=== PATIENT | male | born 1965 | race African-American/Black ===

== ENCOUNTER 2019-02-10 06:21 | Inpatient (IN) | payer OTHER ==
[2019-02-10 07:02] VITALS: BMI 33.2
[2019-02-10] MEDS ORDERED: THROMBIN (BOVINE) 5,000 UNIT VIAL TP ONE ×4 (07:15→12:34)
[2019-02-10] MEDS ORDERED: BENZOIN TINCTURE SWABSTICK TP ONE (07:15)
[2019-02-10] MEDS ORDERED: HEPARIN NA (PORCINE) 5,000 UNITS/ML 1ML VIAL ONE ×2 (07:15→09:41)
[2019-02-10] MEDS ORDERED: PROPOFOL 20 ML ONE ×18 (07:56→13:13)
[2019-02-10] MEDS ORDERED: LIDOCAINE HCL/PF 2% SDV 5ML VIAL ONE (07:56)
[2019-02-10] MEDS ORDERED: fentaNYL CITRATE 250 MCG/5 ML VIAL ONE ×2 (07:56→10:05)
[2019-02-10] MEDS ORDERED: MIDAZOLAM HCL 2 MG/2 ML SINGLE DOSE VIAL ONE ×2 (07:57)
[2019-02-10] MEDS ORDERED: LIDOCAINE HCL 2% (20ML MULTI-DOSE VIAL) ONE (08:00)
[2019-02-10] MEDS ORDERED: ROCURONIUM BROMIDE 50 MG/5 ML SYRINGE ONE (08:26)
[2019-02-10] MEDS ORDERED: SUCCINYLCHOLINE CHLORIDE 200 MG/10 ML SYRINGE ONE (08:26)
[2019-02-10] MEDS ORDERED: BUPIVACAINE LIPOSOME/PF (EXPAREL) 266 MG/20 ML VIAL ONE (08:46)
[2019-02-10] MEDS ORDERED: BUPIVACAINE HCL/PF 0.5% (5 MG/ML) 30 ML VIAL IJ ONE (08:46)
[2019-02-10] MEDS ORDERED: VANCOMYCIN 1,000 MG VIAL (RESTRICTED TO ID ONLY) ONE (09:03)
[2019-02-10] MEDS ORDERED: ceFAZolin SODIUM 1 GM VIAL ONE (09:03)
[2019-02-10] MEDS ORDERED: ceFAZolin SODIUM 1 GM VIAL IVPB ONE (09:32)
[2019-02-10] MEDS ORDERED: VANCOMYCIN 1,000 MG VIAL (RESTRICTED TO ID ONLY) IVPB ONE (09:50)
[2019-02-10] MEDS ORDERED: ePHEDrine SULFATE 50 MG/1 ML AMPULE ONE (09:56)
[2019-02-10] MEDS ORDERED: TRANEXAMIC ACID 1000 MG/10 ML VIAL ONE (09:56)
[2019-02-10] MEDS ORDERED: EPINEPHrine/PF 1 MG/1 ML (1:1,000) AMPULE ONE (09:56)
--- NOTE | 2019-02-10 10:07 | PN ---
Progress Note (short form) - Note Progress Note: Long conversation held with the patient and OR nursing team in pre-op holding area. We reviewed the patient's history, physical exam findings, and advanced imaging studies. Although the patient was originally booked for a 2 level ACDF, he understands that his clinical picture and neurological decline is due to extensive cervical spinal stenosis from C3-T1. As such, today we will perform a C5, C6 corpectomy with C4-C7 anterior cervical decompression and C4-C7 anterior column reconstruction using strut cage and instrumented fusion. The patient understands that he might ultimately also need decompressive surgery at C3-C4 and C7-T1, and that this can be performed at a later date. The risks, benefits, and alternatives of the above-listed procedure were discussed with and understood by the patient. He wishes to proceed with the above-listed procedure. Nigel Childers MD (Orthopaedic Surgery).
[2019-02-10] MEDS ORDERED: ONDANSETRON 4 MG/2 ML VIAL ONE (10:45)
[2019-02-10] MEDS ORDERED: DEXAMETHASONE SOD PHOSPHATE 4 MG/1 ML VIAL ONE ×2 (10:45→11:33)
[2019-02-10] MEDS ORDERED: GLYCOPYRROLATE 0.2 MG/1 ML VIAL ONE (10:47)
[2019-02-10] MEDS ORDERED: NEOSTIGMINE METHYLSULFATE 0.5 MG/1 ML - 10 ML MDV ONE (10:47)
[2019-02-10] MEDS ORDERED: PHENYLEPHRINE HCL 10 MG/1 ML SINGLE DOSE VIAL ONE (11:20)
[2019-02-10] MEDS ORDERED: NALOXONE HCL 0.4 MG/ML VIAL ONE (13:46)
--- NOTE | 2019-02-10 13:56 | PN ---
Progress Note (short form) - Note Progress Note: 53M s/p C5, C6 corpectomies with C4-C5, C5-C6, C6-C7 discectomies and C3-C7 anterior cervical decompression with anterior column reconstruction and instrumented fusion POD #0. -10cc decadron x 2 administered. -Airway observation: In case of emergency, remove anterior cervical spine dressing and pull out running suture; ok to cut suture if needed to decompress hematoma. -Maintain head of bed 30-45 degrees. -Pain medication: per anaesthesia team; oral meds (oxycodone preferred), no HOME CARE LIAISON ; NO NSAID's. -Hard c-collar. -DVT PPx: -Mechanical only: NAIMA's, SCD's. -Post-op Ancef x 3 doses. -f/u AM labs. -Incentive spirometry. -PT/OT/Rehab, OOB. -PWB B/L UE: 5lbs. -WBAT B/L LE. -d/c Schmidt catheter at midnight tonight; TOV (8 hours max). -Keep dressing clean & dry. -No heavy lifting (>5 lbs), bending or twisting x 6 months post op. -Start with soft diet; advance diet as tolerated. -B/L UE & LE NV checks. -Care per ICU & medical hospitalist teams. -Discharge planning: f/u [facility] [place] office 02/21/2019; call for appointment; . Nigel Childers MD (Orthopaedic Surgery).
--- NOTE | 2019-02-10 14:00 | OP ---
Operative Note - Note: Operative Date: 02/10/19 Pre-Operative Diagnosis: 1. 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 2. C3-T1 spinal stenosis with neurogenic claudication. 3. Evolving neuromotor weakness; increased falls; worsened balance disorder. 4. Multi-level axial instability of cervical spine with associated myofascial pain complex. SEVERITY OF ILLNESS: 4. Operation: 1. C5, C6 corpectomies. 2. C4, C7 partial corpectomies. 3. C4-C5, C5-C6, C6-C7 discectomies. 4. C3-C7 insertion biomechanical device. 5. C3-C7 anterior instrumentation. 6. C4-C7 anterior arthrodesis. 7. Bone autograft. 8. Bone allograft. 9. Microsurgical dissection Findings: During corpectomies, diminished signals to B/L LE and RUE. MAP's maintained above 90. Extra 10mg decadron administered. After release of PLL, signals improved in RLE only to diminish again later. Please refer to IOM log for further details. Implants: Cage: Choice Spine Battiest - 46 x [id number]. Plate: Precision Spine Slimplicity - 52mm. Screws: 4 x 4x12mm Post-Operative Diagnosis: Same as Pre-op Surgeon: Nigel Childers Salesperson Parts: Elias Childers Anesthesiologist/PRIMER INSERTING MACHINE OPERATOR: Nieves Bowden Anesthesia: General Specimens Removed: C4-C5, C5-C6, C6-C7 discs Estimated Blood Loss (mls): 275 Drains & Tubes with Location: 1 x deep HemoVac Blood Volume Replaced (mls): 125 (Cell Saver) Fluid Volume Replaced (mls): 1,800 (Crystalloid) Operative Report Dictated: Yes
[2019-02-10] MEDS ORDERED: FLUMAZENIL 0.5 MG/5 ML VIAL ONE (14:06)
[2019-02-10] MEDS ORDERED: oxyCODONE HCL 5 MG TABLET PO PRN ×2 (14:08)
[2019-02-10] MEDS ORDERED: ONDANSETRON 4 MG/2 ML VIAL IVPUSH PRN (14:08)
[2019-02-10] MEDS ORDERED: ACETAMINOPHEN 1000 MG/100 ML VIAL (NON FORMULARY) IVPB PRN (14:14)
[2019-02-10] MEDS ORDERED: LACTATED RINGERS SOLUTION 1,000 ML IV SCH ×2 (14:15→23:41)
[2019-02-10] MEDS ORDERED: ceFAZolin 2 GRAM PREMIX BAG IVPB SCH (15:00)
[2019-02-10] MEDS ORDERED: ACETAMINOPHEN 1000 MG/100 ML VIAL (NON FORMULARY) IVPB ONE (15:30)
[2019-02-10] MEDS ORDERED: ACETAMINOPHEN INJECTION 100 ML IVPB ONE (15:32)
--- NOTE | 2019-02-10 15:35 | OP ---
DATE OF OPERATION: 02/10/2019 PRE-OPERATIVE DIAGNOSIS: 1. C4-C5, C5-C6, C6-C7 intervertebral disk disorder with associated spondylotic: A. Myelopathy. B. Radiculopathy. 2. Cervical spinal stenosis with neurogenic claudication. 3. Cervical kyphosis/deformity. 4. Axial segmental instability cervical spine. 5. Progressive neurological decline with gait imbalance/disorder, weakness, and fall risk. POST-OPERATIVE DIAGNOSIS: 1. C4-C5, C5-C6, C6-C7 intervertebral disk disorder with associated spondylotic: A. Myelopathy. B. Radiculopathy. 2. Cervical spinal stenosis with neurogenic claudication. 3. Cervical kyphosis/deformity. 4. Axial segmental instability cervical spine. 5. Progressive neurological decline with gait imbalance/disorder, weakness, and fall risk. SURGICAL PROCEDURE: 1. C4-C5, C5-C6, C6-C7 discectomies and arthrodesis (37780, 41115 x 2). 2. C5, C6 corpectomies. (74046, 55155). 3. C4, C7 partial corpectomies (24175 x 2). 3. Insertion of biomechanical device C4-C7 (19653). 4. C4-C7 anterior instrumentation (93498). 5. Bone autograft (44349). 6. Bone allograft (87120). 7. Microsurgical dissection (69892). FINDINGS: Significant expansion of theca observed after C4-C7 decompression. IMPLANTS: 1. Cage: Choice Spine [place] [id number]. 2. Plate: Precision Spine Simplicity 52mm. 3. Screws: 4 x 12x4mm. SURGEON: Nigel Childers MD DOMESTIC CLEANER: Elias Childers MD ANESTHESIOLOGT: Nieves Bowden MD ANESTHESIA: General endotracheal tube anesthesia. POSITION: Supine. INCISION: Right oblique anterior. ESTIMATED BLOOD LOSS: 275cc. TRANSFUSIONS: 125cc Cell Saver. INTRAVENOUS FLUID: 1.8L crystalloid. SPECIMENS: C4-5, C5-C6, C6-C7 disc. DRAINS: 1 x deep HemoVac. COMPLICATIONS: None. URINE OUTPUT: See anesthesia record. BACTERIOLOGY: None. CLOSURE: 2-0 Vicryl and 3-0 Biosyn absorbable suture. INDICATIONS: The patient was indicated for an anterior cervical decompression and instrumented fusion to prevent the progression of already worsening neurological decline. The patient was identified in the holding area by his armband. A long discussion was held with the patient regarding the risks, benefits and alternatives of the above-named procedure. The risks include, but are not limited to: pain, bleeding, infection, damage to surrounding structures (including nerves, blood vessels, skin, ligaments, tendons, and bone), dysphagia, dysphonia, nerve palsy, weakness, limp, wound complications, pseudarthrosis, failure of fusion, failure of hardware/implants/ reduction, need for further surgery, blood clots, myocardial infarction, pulmonary embolism, cerebrovascular event, anesthesia complications, neurological injury, loss of function, and . Benefits as mentioned above. Alternatives include no surgery. All questions were answered. The patient understood and agreed to the procedure. Informed consent was obtained, witnessed and verified by hospital nursing staff. The patients anterior neck was marked. The patient was then seen by the anesthesia and nursing staff. A posterior cervical spine block was then performed and then taken to the operating room. PROCEDURE: The patient was brought into the operating room and transferred to the OR table , and secured with a safety strap. Consent and the operative site were again verified with the patient, the nursing team, the surgical team, and the anesthesiology team. Anesthesia, IV antibiotics, 10mg IV decadron and 1g IV TXA were then administered without complication. A time out was done, led by me the attending surgeon. An indwelling Schmidt catheter was successfully inserted by the nursing team. The intra-operative neural monitoring team then set up for the case. Pre-positional baseline SSEP, MEP, & EEG readings were recorded. The patient was positioned in the supine position with arms tucked. All bony prominences were very well padded. A bump was placed beneath the scapulae to facilitate extension of the patients neck. A C-arm fluoroscopy unit was positioned perpendicularly to the table and maintained at the level of the head, except when needed. The intended surgical level was confirmed using fluoroscopy, and a deep neck crease in the lines of Surendra at this level was targeted for incision. Intra-operative neural monitoring revealed no change between pre-positional and post-positional readings. The operative site was then prepped and in the standard sterile fashion using betadine prep and scrub, wiped off with alcohol, Duraprep applied, and then free draped. Pre-operative imaging was available for intra-operative evaluation. Time-out was again done, and the case began. A standard Alonso-Whitney approach to the cervical spine was utilized. An oblique anterior incision was made on the right side of the patients neck in the lines of Surendra in standard fashion. Large anterior jugular veins were seen and protected. The platysma was split longitudinally, Dissection was carried through the investing layer of fascia and finger palpation was used to create a plane lateral to the strap muscles between the carotid sheath and the viscera. Next, the esophagus, trachea, and the carotid sheath were visualized. Hand-held retractors were used to retract these structures safely out of the way , allowing direct access to the anterior cervical spine. The prevertebral fascia overlying the anterior cervical spine was then split using peanut swabs. An 18-gauge spinal needle was bent and used to localize the indicated surgical level under fluoroscopy. This needle had been placed anteriorly into the C4-C5 intervertebral disc. Next, the medial borders of the Longus Coli musculature were gently released over the anterolateral borders of the vertebral bodies and disc spaces using monopolar electrocautery. A self-retaining retractor system was used with the teeth of the blades retracting the belly of the longus coli muscles, and with the retractors themselves safely retracting the carotid sheath laterally and viscera medially. At that point, the IOM team noted that although SSEP's were stable and unchanged from baseline, there was diminished MEP signalling to the patient's bilateral upper and lower extremities. We checked the patient's blood pressure, which was confirmed to be stable. At this point, the anesthesia team, the IOM team, and I agreed to keep the MAP ( mean arterial pressure) above 90mmHg throughout the case to ensure good spinal cord perfusion. I also then elected for the patient to receive another 10mg IV Decadron and we the went ahead with the planned operation. One 12mm Bowman pin was then placed into the center of the vertebral bodies of C4 and C7. The Bowman pin placement was confirmed via fluorscopy. A Bowman pin distractor system was applied with no distraction at this stage. Additionally, the distractor barrels served as superior and inferior soft tissue retractors. The microscope was then introduced. Using monopolar electrocautery, the annuli of the C4-C5, C5-C6, and C6-C7 discs were incised. Each disc was morselized using a curette and excised using a pituitary rongeur. A Matchstick mele-tipped sean was then used to cut a trough into the left and right-hand side of the C5 and C6 vertebral bodies just medial to the waist of each vertebral body, and thus medial to the plane of the vertebral arteries. The C4-C5, C5-C6, and C6-C7 disc spaces were then also burred out. The remaining bone was delivered with a Leksell rongeur. All of this bone was saved for grafting purposes as an autologous graft. A 4mm ball-shaped, mele-tipped sean was utilized to complete the debulking of the residual bone. The mele coating on both sean tips helped minimize blood loss. An undercutting partial corpectomy was performed at C4 and C7 using a sean and Kerrison rongeurs. This was to ensure complete decompression proximally and distally. The PLL was thickened and adhered to the anterior dura. A small Reubens type elevator was utilized to ensure that all PLL complex was free from adhesion to the theca from C4-C7. There was no evidence of OPLL. The visible posterior longitudinal ligament was released and excised utilizing Kerrison rongeur upcuts. This ensured complete decompression proximally and distally from C4-C7. Immediately, the theca expanded anteriorly into the decompressed space. MEP signals in the LE improved momentarily, but then diminished again. Our decompression of the cervical spine was successfully achieved. The anesthesiologist then performed a Valsalva maneuver up to 40mmHg. There was no evidence of dural defect, cerebrospinal fluid leak, or uncontrollable bleeding. Next, a Choice Spine [place] cage measure to fit the space created. The cage was filled with autologous bone derived from the corpectomies, along with demineralized bone matrix putty allograft. The cage was then gently tapped into position. This completing the anterior arthrodesis. The patients head was gently flexed under live fluoroscopy to allow the teeth of the cage to engage the adjacent bone and ensure compression fixation of the cage itself. The was no evidence of mal-position or instability of the cage with flexion and extension of the cervical spine during live fluoroscopy. The C4 and C7 Bowman pins were removed. The holes from the Bowman pins at C4 and C7 were plugged with demineralized bone matrix putty. A 52mm Precision Spine Slimplicity plate was sized and 12mm screws were used to provide solid fixation of the plate to the anterior C4 and C7 vertebral bodies. The screws were then locked using the plate-screw locking mechanism. Fluoroscopic images in the AP and lateral plane showed implants to be in good position and with good overall alignment of the cervical spine. Throughout the case, copious irrigation was performed to clear debris, and to moisturize the dura and all exposed soft tissue. Hemostasis was assured. A deep 1/8 HemoVac drain was placed and brought out to the right. The wound was closed primarily using 2-0 Vicryl and 3-0 Biosyn sutures. A sterile compressive dressing and a [place]ingle[place]-J cervical collar were applied. Sponge and needle counts were correct at the end of the case, and I, the attending surgeon, was present and scrubbed throughout the case. The patient was then extubated by the anesthesia staff without incident or complications and was then transferred to the recovery room in stable condition having tolerated the procedure well. OVERALL COMMENTS: No complications. The operation went extremely well. Patient's blood pressures remained stable throughout the case. No damage to the cord mechanically or in any other way. SSEP's remained stable throughout the case. We remain concerned about the drop in MEP signals to the hands and feet, which manifest right after exposure of the anterior cervical spine. The drop occurred when we started burring the bone anteriorly, and this remained down throughout. Otherwise, all operative goals met: Complete decompression of the spinal cord from C4-C7 as described. Solid fixation of all implants. MD MICHEL Martin/[id number] MTDD
[2019-02-10] MEDS: CEFAZOLIN 2 GM/D5W 2 GM/50 ML ML IVPB SCH ×2 (17:15→21:45)
--- NOTE | 2019-02-10 17:37 | CONSULT ---
Consultation: REQUESTING PROVIDER: CONSULT REQUEST: We have been asked to medically evaluate this patient for ( post op monitoring ). HISTORY OF PRESENT ILLNESS: 53 year old male with pomhx of HTN not on meds , and ckd base line Cr 1.5 presented to [facility] for elective cervical spine surgery after one year hisotry of spinal steosis with numbness , tingling and right side weakness , imbalance gait , symptoms started one year ago while was doing cardiovascular exercise per pt , denies nay fever , chills, N/V/D/C denies any headache , blurry vision , chest pain , sob . 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 , denies smoking or drugs , drinking alcohol socially , wine REVIEW OF SYSTEMS: CONSTITUTIONAL: Absent: fever, chills, diaphoresis, generalized weakness, malaise, loss of appetite, weight change HEENT: Absent: rhinorrhea, nasal congestion, throat pain, throat swelling, difficulty swallowing, mouth swelling, ear pain, eye pain, visual changes CARDIOVASCULAR: Absent: chest pain, syncope, palpitations, irregular heart rate, lightheadedness , peripheral edema RESPIRATORY: Absent: cough, shortness of breath, dyspnea with exertion, orthopnea, wheezing, stridor, hemoptysis GASTROINTESTINAL: Absent: abdominal pain, abdominal distension, nausea, vomiting, diarrhea, constipation, melena, hematochezia GENITOURINARY: Absent: dysuria, frequency, urgency, hesitancy, hematuria, flank pain, genital pain MUSCULOSKELETAL: Absent: myalgia, arthralgia, joint swelling, back pain, neck pain SKIN: Absent: rash, itching, pallor HEMATOLOGIC/IMMUNOLOGIC: Absent: easy bleeding, easy bruising, lymphadenopathy, frequent infections ENDOCRINE: Absent: unexplained weight gain, unexplained weight loss, heat intolerance, cold intolerance NEUROLOGIC: Absent: headache, focal weakness right side or paresthesias LE , dizziness, unsteady gait imbalance , seizure, mental status changes, bladder or bowel incontinence PSYCHIATRIC: Absent: anxiety, depression, suicidal or homicidal ideation, hallucinations. PHYSICAL EXAMINATION Vital Signs - 24 hr 02/10/19 02/10/19 02/10/19 06:52 07:01 07:02 Temperature 98.3 F 98.3 F Pulse Rate 74 74 Respiratory 20 20 Rate Blood Pressure 135/78 135/78 O2 Sat by Pulse 100 Oximetry (%) 02/10/19 02/10/19 02/10/19 14:00 14:15 14:30 Temperature 98.0 F Pulse Rate 93 H 92 H 110 H Respiratory 30 H 34 H 36 H Rate Blood Pressure 150/89 152/92 150/90 O2 Sat by Pulse 100 100 100 Oximetry (%) 02/10/19 02/10/19 02/10/19 14:45 15:00 15:15 Temperature Pulse Rate 90 83 88 Respiratory 28 H 25 H 25 H Rate Blood Pressure 155/88 160/90 165/45 L O2 Sat by Pulse 100 100 100 Oximetry (%) 02/10/19 02/10/19 02/10/19 15:30 15:45 16:00 Temperature Pulse Rate 83 80 83 Respiratory 25 H 25 H 26 H Rate Blood Pressure 155/80 140/90 148/90 O2 Sat by Pulse 100 100 100 Oximetry (%) 02/10/19 02/10/19 16:15 16:30 Temperature 97.9 F Pulse Rate 80 85 Respiratory 25 H 18 Rate Blood Pressure 159/90 158/88 O2 Sat by Pulse 100 9 L Oximetry (%) GENERAL: Awake, alert, and fully oriented, in mild distress due to pain . HEAD: Normal with no signs of trauma. EYES: Pupils equal, round and reactive to light, extraocular movements intact, sclera anicteric, conjunctiva clear. EARS, NOSE, THROAT: Ears normal, nares patent, oropharynx clear without exudates. Moist mucous membranes. NECK: supple , collar in place , anterior surgical scar , and Alonso drainage LUNGS: Breath sounds equal, clear to auscultation bilaterally. No wheezes, and no crackles. No accessory muscle use. HEART: Regular rate and rhythm, normal S1 and S2 without murmur, rub or gallop. ABDOMEN: Soft, nontender, not distended, normoactive bowel sounds, no guarding, MUSCULOSKELETAL: move all ext , right hand digital strategist is weak 2/5 , right hand digital strategist 4/ 5 . lower ext right weaker than left , able to move toes but difficult to raise legs due to pain ,no edema , +2 DP. NEUROLOGICAL: Cranial nerves II-XII intact. low pitched tone S/P extubation , gait not observed , PSYCHIATRIC: Cooperative. SKIN: Warm, dry, normal turgor, Laboratory Results - last 24 hr 02/10/19 02/10/19 06:35 08:20 Blood Type O POSITIVE O POSITIVE Antibody Screen Negative Active Medications Generic Name Dose Route Start Last Admin Trade Name Freq PRN Reason Stop Dose Admin Acetaminophen 1,000 mg 02/10/19 14:14 Ofirmev Injection - IVPB Q6H PRN FEVER Fentanyl 50 mcg 02/10/19 14:14 Sublimaze Injection - IVPUSH [id number] PRN PAIN-PACU ORDER X 4 DOSES ONLY Lactated Ringer's 1,000 mls @ 125 mls/hr 02/10/19 14:15 02/10/19 17:33 Lactated Ringers Solution IV Not Given ASDIR MICHELLE Cefazolin Sodium/Dextrose 2 gm in 50 mls @ 100 mls/hr 02/10/19 15:30 17:15 Ancef 2 Gm Premixed Ivpb - IVPB 02/11/19 03:29 100 mls/hr Q6H-IV MICHELLE Administration Ondansetron HCl 4 mg 02/10/19 14:08 Zofran Injection IVPUSH Q6H PRN NAUSEA AND/OR VOMITING Oxycodone HCl 5 mg 02/10/19 14:08 Roxicodone - PO Q4H PRN PAIN LEVEL 1-5 Oxycodone HCl 10 mg 02/10/19 14:08 Roxicodone - PO Q4H PRN PAIN LEVEL 6-10 ASSESSMENT/PLAN: 53 year old male with no pmhx presented to [facility] for elective cervical surgery due to one year history of spinal stenosis , numbness and tingling in LE and imbalance gait . #POD# [address] richard 1. 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 2. C3-T1 spinal stenosis with neurogenic claudication. 3. Evolving neuromotor weakness; increased falls; worsened balance disorder. 4. Multi-level axial instability of cervical spine with associated myofascial pain complex. SEVERITY OF ILLNESS: 4. Operation: 1. C5, C6 corpectomies. 2. C4, C7 partial corpectomies. 3. C4-C5, C5-C6, C6-C7 discectomies. 4. C3-C7 insertion biomechanical device. 5. C3-C7 anterior instrumentation. 6. C4-C7 anterior arthrodesis. 7. Bone autograft. 8. Bone allograft. 9. Microsurgical dissection * pain control per surgery team , oxycodone 10 and 5 , Tylenol IV , Fentanyl injection PRN 4 doses max * IV fluids RL @ 125 CC/hr * Cefazolin Prophylaxis x2 * Schmidt in place could be remove at med night * soft diet per surgery * PT, OT , OOB , avoid heavy lifting , head of bed elevation , * no bending or twisting x 6 months post op. * maintain airways ,monitor for any surgical hematoma or any signs of bleeding , NO NSAIDS * monitor in ICU , pulse oxy, BP monitor , surveillance system monitor * monitor urine out put * zofran for nausea * cbc , cmp, mg , phosphorus * monitor lytes * no chemical prophylaxis , apply SCDS , TEDS * incentive spirometry * blood loss estimated 275 cc * crystaloid replinished 1800 cc * S.P decardan IV x2 # HTN * not on any meds at home , * monitor closely * can start Norvasc 5 mg daily ic cont to be elevated in AM * Labetolol IVPRN over night if above 170 systolic * # CKD base line Cr 1.5 , monitor labs , Dispo: We will continue to follow the patient. Thank you for this consultative opportunity. Visit type - Emergency Visit Emergency Visit: No - New Patient This patient is new to me today: Yes Date on this admission: 02/10/19 - Critical Care Critical Care patient: Yes Total Critical Care Time (in minutes): 45 Critical Care Statement: The care of this patient involved high complexity decision making to prevent further life threatening deterioration of the patient 's condition and/or to evaluate & treat vital organ system(s) failure or risk of failure. ATTENDING PHYSICIAN STATEMENT I saw and evaluated the patient. I reviewed the resident's note and discussed the case with the resident. I agree with the resident's findings and plan as documented. SUBJECTIVE: OBJECTIVE: ASSESSMENT AND PLAN:
--- NOTE | 2019-02-10 17:59 | CONSULT ---
Consultation: REQUESTING PROVIDER: Dr. Childers CONSULT REQUEST: We have been asked to medically evaluate this patient for postoperative management HISTORY OF PRESENT ILLNESS: Patient is a 53 year old male with history of hypertension (not on antihypertensives), CKD (baseline Cr 1.5 secondary to muscle mass) presetns POD #0 s/p C5, C6 corpectomies, C4-C7 discectomies and C3-C7 anterior cervical decompression with anterior column reconstruction and instrumented fusion. Patient has been complaining of weakness worst at the right lower extremity ( hip flexors), and right upper extremity leading to diminished exercise capacity. Intraoperatively patient had estimated blood loss of 275mL, with 125cc cell- saver, and 1800cc crystalloid fluid replacement. Patient also received Decadron 10mg X2. Currently patient endorses chills, weakness (bilateral upper and lower extremities) and numbness of his lower extremities (right > left). Past medical history: hypertension, CKD Past surgical history: left leg cyst drainage (25 years ago) Family history: Mother with history of hypertension, diabetes mellitus Medications: Multivitamins (A, B, C, D, E) Allergies: NKDA Social history: Lives with his son. 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 Denies smoking cigarettes, alcohol consumption, illicit drug use. Patient is independent is his activities of daily living. REVIEW OF SYSTEMS: CONSTITUTIONAL: Admits: chills, generalized weakness. Absent: fever, diaphoresis, malaise, loss of appetite, weight change HEENT: Absent: rhinorrhea, nasal congestion, throat pain, throat swelling, difficulty swallowing, mouth swelling, ear pain, eye pain, visual changes CARDIOVASCULAR: Absent: chest pain, syncope, palpitations, irregular heart rate, lightheadedness , peripheral edema RESPIRATORY: Absent: cough, shortness of breath, dyspnea with exertion, orthopnea, wheezing, stridor, hemoptysis GASTROINTESTINAL: Absent: abdominal pain, abdominal distension, nausea, vomiting, diarrhea, constipation, melena, hematochezia GENITOURINARY: Absent: dysuria, frequency, urgency, hesitancy, hematuria, flank pain, genital pain MUSCULOSKELETAL: Absent: myalgia, arthralgia, joint swelling, back pain, neck pain SKIN: Absent: rash, itching, pallor HEMATOLOGIC/IMMUNOLOGIC: Absent: easy bleeding, easy bruising, lymphadenopathy, frequent infections ENDOCRINE: Absent: unexplained weight gain, unexplained weight loss, heat intolerance, cold intolerance NEUROLOGIC: Absent: headache, focal weakness or paresthesias, dizziness, unsteady gait, seizure, mental status changes, bladder or bowel incontinence PSYCHIATRIC: Absent: anxiety, depression, suicidal or homicidal ideation, hallucinations. PHYSICAL EXAMINATION Vital Signs - 24 hr 02/10/19 02/10/19 02/10/19 06:52 07:01 07:02 Temperature 98.3 F 98.3 F Pulse Rate 74 74 Respiratory 20 20 Rate Blood Pressure 135/78 135/78 O2 Sat by Pulse 100 Oximetry (%) 02/10/19 02/10/19 02/10/19 14:00 14:15 14:30 Temperature 98.0 F Pulse Rate 93 H 92 H 110 H Respiratory 30 H 34 H 36 H Rate Blood Pressure 150/89 152/92 150/90 O2 Sat by Pulse 100 100 100 Oximetry (%) 02/10/19 02/10/19 02/10/19 14:45 15:00 15:15 Temperature Pulse Rate 90 83 88 Respiratory 28 H 25 H 25 H Rate Blood Pressure 155/88 160/90 165/45 L O2 Sat by Pulse 100 100 100 Oximetry (%) 02/10/19 02/10/19 02/10/19 15:30 15:45 16:00 Temperature Pulse Rate 83 80 83 Respiratory 25 H 25 H 26 H Rate Blood Pressure 155/80 140/90 148/90 O2 Sat by Pulse 100 100 100 Oximetry (%) 02/10/19 02/10/19 16:15 16:30 Temperature 97.9 F Pulse Rate 80 85 Respiratory 25 H 18 Rate Blood Pressure 159/90 158/88 O2 Sat by Pulse 100 9 L Oximetry (%) GENERAL: The patient is awake, alert, and fully oriented, in no acute distress. HEAD: Normocephalic, atraumatic. EYES: PERRL, extraocular movements intact, sclera anicteric, conjunctiva clear. ENT: Oropharynx clear, without erythema or exudates. Moist mucous membranes. NECK: Cervical collar in place. Right sided VALENTÍN drain with sanguinous drainage. Negative stridor auscultated. LUNGS: Breath sounds equal, clear to auscultation bilaterally, no wheezes, no crackles. No accessory muscle use. HEART: Regular rate and rhythm, S1, S2 without murmur, rub or gallop. ABDOMEN: Soft, nondistended, nontender to light and deep palpation x4 quadrants , no rebound tenderness, no guarding. Normoactive bowel sounds x4 quadrants. EXTREMITIES: 2+ radial, dorsalis pedis pulses bilaterally. No lower extremity edema bilaterally. NEUROLOGICAL: Cranial nerves II through XII grossly intact. Strength testing: LUE 3/5, RUE 2-3/5, LLE 3/5, RLE 2/5. Sensation diminished right lower extremity > left lower extremity. Biceps, and Patellar reflexes 1+ bilaterally. PSYCH: Normal mood, normal affect upon my encounter. SKIN: Warm, dry. Right sided cervical surgical site bandaged clean, dry, intact. Laboratory Results - last 24 hr 02/10/19 02/10/19 06:35 08:20 Blood Type O POSITIVE O POSITIVE Antibody Screen Negative Active Medications Generic Name Dose Route Start Last Admin Trade Name Freq PRN Reason Stop Dose Admin Acetaminophen 1,000 mg 02/10/19 14:14 Ofirmev Injection - IVPB Q6H PRN FEVER Fentanyl 50 mcg 02/10/19 14:14 Sublimaze Injection - IVPUSH [id number] PRN PAIN-PACU ORDER X 4 DOSES ONLY Lactated Ringer's 1,000 mls @ 125 mls/hr 02/10/19 14:15 02/10/19 17:33 Lactated Ringers Solution IV Not Given ASDIR MICHELLE Cefazolin Sodium/Dextrose 2 gm in 50 mls @ 100 mls/hr 02/10/19 15:30 17:15 Ancef 2 Gm Premixed Ivpb - IVPB 02/11/19 03:29 100 mls/hr Q6H-IV MICHELLE Administration Ondansetron HCl 4 mg 02/10/19 14:08 Zofran Injection IVPUSH Q6H PRN NAUSEA AND/OR VOMITING Oxycodone HCl 5 mg 02/10/19 14:08 Roxicodone - PO Q4H PRN PAIN LEVEL 1-5 Oxycodone HCl 10 mg 02/10/19 14:08 Roxicodone - PO Q4H PRN PAIN LEVEL 6-10 ASSESSMENT/PLAN: Patient is a 53 year old male with history of hypertension (not on antihypertensives), CKD (baseline Cr 1.5 secondary to muscle mass) presetns POD #0 s/p C5, C6 corpectomies, C4-C7 discectomies and C3-C7 anterior cervical decompression with anterior column reconstruction and instrumented fusion. Cervical corpectomies, discectomies, and cervical decompression/ reconstruction -Follow cervical spine Xray -Ancef 2grams Q6 hours x3 doses postoperatively -Ofirmev 1000mg IV Q6 hours. Caution with opiates; patient reported to be very sensitive -Elevate head of bed 30 degrees -Maintain oxygen saturation greater than 90%. -Incentive spirometer -Physical therapy evaluation Hypertension -Elevated BP may be secondary to pain. Monitor vitals closely -Consider initiating Beta Eliana low dose to control blood pressure. FEN -IV LR at 125mL/ hour. Discontinue once patient tolerating oral intake -Follow BMP -Soft diet, pending speech/ swallow evaluation Prophylaxis -SCDs bilateral lower extremities- per Dr. Childers. Disposition: We will continue to follow the patient. Thank you for this consultative opportunity. Visit type - Emergency Visit Emergency Visit: Yes ED Registration Date: 02/10/19 Care time: The patient presented to the Emergency Department on the above date and was hospitalized for further evaluation of their emergent condition. - New Patient This patient is new to me today: Yes Date on this admission: 02/10/19 - Critical Care Critical Care patient: Yes Total Critical Care Time (in minutes): 35 Critical Care Statement: The care of this patient involved high complexity decision making to prevent further life threatening deterioration of the patient 's condition and/or to evaluate & treat vital organ system(s) failure or risk of failure. ATTENDING PHYSICIAN STATEMENT I saw and evaluated the patient. I reviewed the resident's note and discussed the case with the resident. I agree with the resident's findings and plan as documented. SUBJECTIVE: OBJECTIVE: ASSESSMENT AND PLAN:
--- NOTE | 2019-02-10 20:04 | PN ---
Teaching Attending Note Name of Resident: Rod Delgado ATTENDING PHYSICIAN STATEMENT I saw and evaluated the patient. I reviewed the resident's note and discussed the case with the resident. I agree with the resident's findings and plan as documented. SUBJECTIVE: consult for dr. Childers CC: s/p cervical spine sx HPI : 53 y/o man with h/o ceervical disc disease , and untreated HTN. who presented for his sx . medicine service was consulted for medical management patient is seen in ICU post his procedure. he has numbness in his hands and weakness in his legs. sore throat. no SOB , no HUTSON or dizziness OBJECTIVE: NAD , awake, alet, collar on . neck with anterior dressing. no stridor . VALENTÍN with bloody drainage . MMM, oropharynx with erythema and bruising . no edema Lungs : CTAB CV: RRR, n oMRG Abd: soft, NT, ND , NL BS Ext : No edema No erythema NEuro : EOMI, round equal pupils, no facial droop. tongue and uvula at mid line strength : RUE: 5/5 shoulder shrug, 5/5 biceps and triceps . 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 4/5 knee extension . 4/5 ankle dorsiflexion, and 5/5 ankle plantar flexion LLE: 5/5 hip flexion . 5/5 knee extension . 5/5 ankle dorsiflexion, and 5/5 ankle plantar flexion . 5/5 knee flexion sensation : decreased to light touch on thighs and legs. nl on feet and on upper extremities and trunk reflexes : 2+ knee jerk b/l. 1+ biceps b/l ASSESSMENT AND PLAN: 3 y/o man with h/o ceervical disc disease , and untreated HTN. who presented for his sx . medicine service was consulted for medical management 1- Cervical disc disease with meylopathy and radiculopathy. s/p cervical spine sx 2- H/o Untreated hypertension . 3- elevated BP plan ; - painmanagement - monitopr BP , likely elevated not due to pain - SCds no heparin - food as tolerated. - baker - PT -add bowel regimen
[2019-02-10] MEDS ORDERED: DOCUSATE NA 100 MG/10 ML UNIT-DOSE CUPS PO PRN (20:05)
[2019-02-10 21:43] LABS: BASO % 0.1 % (0-2.0); HEMOGLOBIN 13.6 GM/dL (11.7-16.9); MCH 26.6 pg (25.7-33.7); MCHC 32.5 g/dl (32.0-35.9); MEAN CELL VOLUME 81.8 fl (80-96); MEAN PLT VOLUME 8.7 fl (7.5-11.1); MONO % 0.7 % (3.8-10.2); NEUT % 94.2 % (42.8-82.8); PLATELET COUNT 175 K/MM3 (134-434); RBC 5.13 M/mm3 (4.00-5.60); RDW 13.7 % (11.9-15.9); WHITE BLOOD COUNT 9.3 K/mm3 (4.0-10.0)
[2019-02-10 22:19] LABS: ALBUMIN 3.5 g/dl (3.4-5.0); BILIRUBIN,TOTAL 0.4 mg/dL (0.2-1); BLOOD UREA NITROGEN 12.1 mg/dL (7-18); CREATININE 1.8 mg/dL (0.55-1.3); MAGNESIUM 1.7 mg/dL (1.8-2.4); PHOSPHOROUS 2.2 mg/dL (2.5-4.9); POTASSIUM 4.5 mmol/L (3.5-5.1); TOT PROT 6.7 g/dl (6.4-8.2)
[2019-02-10 22:49] LABS: PLATELET ESTIMATE ADEQUATE
[2019-02-11] MEDS: CEFAZOLIN 2 GM/D5W 2 GM/50 ML ML IVPB SCH (03:30)
[2019-02-11 07:28] LABS: BASO % 0.2 % (0-2.0); HEMATOCRIT 40.3 % (35.4-49); HEMOGLOBIN 13.1 GM/dL (11.7-16.9); MCH 26.5 pg (25.7-33.7); MCHC 32.4 g/dl (32.0-35.9); MEAN CELL VOLUME 81.6 fl (80-96); NEUT % 84.8 % (42.8-82.8); PLATELET COUNT 169 K/MM3 (134-434); RBC 4.94 M/mm3 (4.00-5.60); RDW 13.4 % (11.9-15.9); WHITE BLOOD COUNT 11.5 K/mm3 (4.0-10.0)
[2019-02-11 08:09] LABS: ALBUMIN 3.3 g/dl (3.4-5.0); CALCIUM 9.1 mg/dL (8.5-10.1); CREATININE 1.6 mg/dL (0.55-1.3); PHOSPHOROUS 4.3 mg/dL (2.5-4.9); POTASSIUM 4.4 mmol/L (3.5-5.1); TOT PROT 6.4 g/dl (6.4-8.2)
--- NOTE | 2019-02-11 11:12 | PN ---
Teaching Attending Note Name of Resident: Vy Celis ATTENDING PHYSICIAN STATEMENT I saw and evaluated the patient. I reviewed the resident's note and discussed the case with the resident. I agree with the resident's findings and plan as documented. SUBJECTIVE: Patient seen and examined in the ICU. Awake and alert. No CP or SOB. Neuro exam apparently improved post-op. No acute events overnight. GENERAL: Awake, alert, and fully oriented HEAD: Normal with no signs of trauma. EYES: Pupils equal, round and reactive to light, extraocular movements intact, sclera anicteric, conjunctiva clear. EARS, NOSE, THROAT: Ears normal, nares patent, oropharynx clear without exudates. Moist mucous membranes. NECK: supple , collar in place , anterior surgical scar , and Alonso drainage LUNGS: Breath sounds equal, clear to auscultation bilaterally. No wheezes, and no crackles. No accessory muscle use. HEART: Regular rate and rhythm, normal S1 and S2 without murmur, rub or gallop. ABDOMEN: Soft, nontender, not distended, normoactive bowel sounds, no guarding, MUSCULOSKELETAL: move all ext, slight sensory decrease BL upper thighs, motor intact NEUROLOGICAL: Non-focal PSYCHIATRIC: Cooperative. SKIN: Warm, dry, normal turgor, ASSESSMENT/PLAN: POD# 1 1. C5, C6 corpectomies. 2. C4, C7 partial corpectomies. 3. C4-C5, C5-C6, C6-C7 discectomies. 4. C3-C7 insertion biomechanical device. 5. C3-C7 anterior instrumentation. 6. C4-C7 anterior arthrodesis. 7. Bone autograft. 8. Bone allograft. 9. Microsurgical dissection Pain control Monitor Neuro exam PO as tolerated VTE prophylaxis Activity per Ortho Home meds Floor when OK with surgery Dr Perdomo
--- NOTE | 2019-02-11 11:21 | CONSULT ---
Admitting History and Physical - Primary Care Physician PCP: Nigel Childers - Admission History of Present Illness: 53 y/o man with h/o ceervical disc disease in ICU post his procedure with numbness in his hands and weakness in his legs. sore throat s/p C5, C6 corpectomies, C4-C7 discectomies and C3-C7 anterior cervical decompression with anterior column reconstruction and instrumented fusion. Selected Entries 02/10/19 02/10/19 02/10/19 06:52 07:01 14:00 Temperature 98.3 F 98.3 F 98.0 F Blood Pressure 135/78 135/78 150/89 02/10/19 02/10/19 02/10/19 14:15 14:30 14:45 Temperature Blood Pressure 152/92 150/90 155/88 02/10/19 02/10/19 02/10/19 15:00 15:15 15:30 Temperature Blood Pressure 160/90 165/45 L 155/80 02/10/19 02/10/19 02/10/19 15:45 16:00 16:15 Temperature Blood Pressure 140/90 148/90 159/90 02/10/19 02/10/19 02/10/19 16:30 17:00 18:00 Temperature 97.9 F 98.4 F Blood Pressure 158/88 166/85 148/92 02/10/19 02/10/19 02/10/19 19:00 19:40 20:00 Temperature Blood Pressure 170/99 173/106 H 124/94 02/10/19 02/10/19 02/10/19 21:00 22:00 23:00 Temperature 97.6 F Blood Pressure 144/91 143/106 H 135/86 02/11/19 02/11/19 02/11/19 00:00 01:00 02:00 Temperature 97.8 F Blood Pressure 143/84 124/77 140/82 02/11/19 02/11/19 02/11/19 03:00 04:00 05:00 Temperature Blood Pressure 129/80 131/75 139/82 02/11/19 02/11/19 02/11/19 06:00 08:00 10:00 Temperature 98.0 F 97.4 F L Blood Pressure 147/90 111/63 143/87 Laboratory Tests 02/10/19 02/11/19 21:05 06:40 WBC 9.3 11.5 H History Source: Patient, Medical Record Limitations to Obtaining History: No Limitations - Smoking History Smoking history: Never smoked - Alcohol/Substance Use Hx Alcohol Use: Yes (WINE [place]) - Social History 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 Pt's son is at [facility] History - Admission Reason For Visit: SPINAL STENOSIS CERVICAL [facility]ION - Diagnostics X-ray: Report Reviewed - General Mental Status: Alert and Oriented, Awake and Alert, Able to Follow Commands Attention: Intact Ability to Follow Directions: Excellent Head/Neck Control: WFL - Hearing Hearing: Normal Speech Evaluation - Communication Primary Language: CROATIAN Communication: Yes: Within Normal Limits - Speech Production Able to Make Needs Known: Yes: WNL Intelligibility: Yes: WNL - Speech Characteristics Voice Loudness: Mildly Soft/Quiet Voice Pitch: Yes: Normal Voice Phonatory-based Quality: Yes: Hoarse, Dysphonia (mild) Speech Clarity: < 100% Nasal Resonance: Normal Articulation: Yes: Precise Rate of Speech: Intact - Language/Auditory Comprehension Follows: Yes: 2 Stage Simple Commands - Language/Verbal Expression Able to Respond to Simple Queries: Yes: WNL Able to Communicate Wants and Needs: Yes: WNL Functional Communication Status: Yes: WNL - Memory/Perception prison Memory: Yes: WNL Short Term Memory: Yes: WNL - Swallow Evaluation/Bedside Assessment Current Nutritional Intake: Soft, Thin Liquids Oral Secretions: Yes: WFL Dentition: Yes: Adequate Facial Symmetry at Rest: Symmetrical Facial Symmetry on Retraction: Symmetrical Against Resistance Opening: Normal Against Resistance Closing: Normal Pucker Lips: Normal Smile: Normal Lingual Movement: Normal, Symmetric Lingual Speed of Movement: Normal Lingual Movement Strgth Against Opposition: Normal Lingual Movement Characteristics: Normal Velopharyngeal Movement: Normal Laryngeal Movement: Reduced Excursion, Labored,delay initiation Rate of Intake: WFL Bolus Size: WFL Labial Seal: WFL Chewing: WFL Oral Prep Time: WFL A-P Transit: WFL Pocketing: None Timing of Swallow: Delayed Coughing/Throat Clear: No (3 oz water (-)) Change in Voice: No Recommendations - Speech Evaluation, Impression/Plan Impression: Mild dysphonia. Pt reports mild stasis of solids in pharynx, with improved clearance with second swallow/f/u of water. - Dysphagia Impressions/Plan Swallowing Skills: Impaired Dysphagia Impressions: Mild Impairment (suspect stasis. Monitor tolerance, changes in symptoms.) *Silent aspiration: cannot be R/O at bedside (stasis can not be r/o at bedside but clinically tolerated eggs with some difficulty) Dysphagia Treatment Plan: Small Bites, Chin Tuck/Down (as tolerated and permitted), Safe Rate, 1/2 tsp. at a time, Other (Chew very well, small bites, moistened with gravy, applesauce, Alternate solid with sip of liquid.) Recommendations: Modified Barium Swallow (if difficulty reported/observed) - Recommendations Diet Consistency: Other (Soft, moist,) Liquids: Thin Liquids
--- NOTE | 2019-02-11 13:13 | PN ---
Physical Exam: SUBJECTIVE: Patient seen and examined. Feeling well, improvement of RUE & b/l LE weakness with some residual sensory deficit. Denies pain. Tolerating PO diet. Pending PT eval. OBJECTIVE: Vital Signs Period Temp Pulse Resp BP Sys/Rubio Pulse Ox Last 24 Hr 97.4 F-98.4 F 67-112 14-37 111-173/45-106 9-100 GENERAL: AOx3 NAD. HEENT: Hard cervical collar in place. PERRLA. EOMI. LUNGS: CTABL HEART: Regular rate and rhythm, S1, S2 without murmur, rub or gallop. ABDOMEN: Soft, nontender, nondistended, normoactive bowel sounds EXTREMITIES: 2+ pulses, warm, well-perfused, no edema. NEUROLOGICAL: Good hand education rn b/l. Motor: RUE 3/5, LLE 5/5. RLE 3/5, LLL 5/5. Good passive ROM. LE reflexes 2+. Sensation diminished b/l LE through ankles. PSYCH: Normal mood, normal affect. SKIN: no rashes or lesions noted Laboratory Results - last 24 hr 02/10/19 02/10/19 02/11/19 21:05 21:05 06:40 WBC 9.3 11.5 H RBC 5.13 4.94 Hgb 13.6 13.1 Hct 42.0 40.3 MCV 81.8 81.6 MCH 26.6 26.5 MCHC 32.5 32.4 RDW 13.7 13.4 Plt Count 175 169 MPV 8.7 9.0 Absolute Neuts (auto) 8.7 H 9.8 H Neutrophils % 94.2 H 84.8 H Neutrophils % (Manual) 90.0 H Band Neutrophils % 3.0 Lymphocytes % 5.0 L 10.0 D Lymphocytes % (Manual) 5.0 L Monocytes % 0.7 L 5.0 D Monocytes % (Manual) 0 L Eosinophils % 0.0 0.0 Eosinophils % (Manual) 0.0 Basophils % 0.1 0.2 Basophils % (Manual) 0.0 Nucleated RBC % 0 0 Platelet Estimate Adequate Sodium 143 Potassium 4.5 Chloride 109 H Carbon Dioxide 26 Anion Gap 8 BUN 12.1 Creatinine 1.8 H Est GFR (CKD-EPI)AfAm 48.72 Est GFR (CKD-EPI)NonAf 42.03 Random Glucose 130 H Calcium 9.0 Phosphorus 2.2 L Magnesium 1.7 L Total Bilirubin 0.4 AST 23 ALT 28 Alkaline Phosphatase 76 Total Protein 6.7 Albumin 3.5 02/11/19 06:40 WBC RBC Hgb Hct MCV MCH MCHC RDW Plt Count MPV Absolute Neuts (auto) Neutrophils % Neutrophils % (Manual) Band Neutrophils % Lymphocytes % Lymphocytes % (Manual) Monocytes % Monocytes % (Manual) Eosinophils % Eosinophils % (Manual) Basophils % Basophils % (Manual) Nucleated RBC % Platelet Estimate Sodium 142 Potassium 4.4 Chloride 106 Carbon Dioxide 29 Anion Gap 7 L BUN 16.0 Creatinine 1.6 H Est GFR (CKD-EPI)AfAm 56.17 Est GFR (CKD-EPI)NonAf 48.46 Random Glucose 113 H Calcium 9.1 Phosphorus 4.3 Magnesium 2.0 Total Bilirubin 1.0 AST 25 ALT 25 Alkaline Phosphatase 74 Total Protein 6.4 Albumin 3.3 L Active Medications Generic Name Dose Route Start Last Admin Trade Name Freq PRN Reason Stop Dose Admin Acetaminophen 1,000 mg 02/10/19 14:14 Ofirmev Injection - IVPB Q6H PRN FEVER Docusate Sodium 200 mg 02/10/19 20:05 Colace Liquid - PO Q24H PRN CONSTIPATION Lactated Ringer's 1,000 mls @ 75 mls/hr 02/10/19 23:41 02/11/19 01:46 Lactated Ringers Solution IV 75 mls/hr ASDIR MICHELLE Administration Ondansetron HCl 4 mg 02/10/19 14:08 Zofran Injection IVPUSH Q6H PRN NAUSEA AND/OR VOMITING Oxycodone HCl 5 mg 02/10/19 14:08 Roxicodone - PO Q4H PRN PAIN LEVEL 1-5 Oxycodone HCl 10 mg 02/10/19 14:08 Roxicodone - PO Q4H PRN PAIN LEVEL 6-10 ASSESSMENT/PLAN: 53 y.o. M PMH cervical disc disease & uncontrolled HTN, POD #1 s/p C5,C6 corpectomy w/ C4-C7 anterior cervical decompression & C4-C7 ant column reconstruction & instrumented fusion by Dr. Childers. #Neuro -Mild motor/ sensory deficits as above in physical exam -Daily neuro checks #CV -Monitor BP/ vitals -consider addition of HTN meds on discharge #Pulm -Maintain O2 sat >90% -Patient breathing well on room air #GI -Colace for constipation # -baker d/c'd voiding freely #Pain control -oxycodone, tylenol PRN #FEN -no standing fluids -monitor lytes -Soft diet advance as tolerated #ID -Post- op Ancef given; no current abx at this time #Prophylaxis -SCDs #Dispo -Med surg once surgically cleared Visit type - Emergency Visit Emergency Visit: No - New Patient This patient is new to me today: Yes Date on this admission: 02/11/19 - Critical Care Critical Care patient: Yes Total Critical Care Time (in minutes): 36 Critical Care Statement: The care of this patient involved high complexity decision making to prevent further life threatening deterioration of the patient 's condition and/or to evaluate & treat vital organ system(s) failure or risk of failure. ATTENDING PHYSICIAN STATEMENT I saw and evaluated the patient. I reviewed the resident's note and discussed the case with the resident. I agree with the resident's findings and plan as documented. SUBJECTIVE: OBJECTIVE: ASSESSMENT AND PLAN:
--- NOTE | 2019-02-11 13:15 | PN ---
Physical Exam: SUBJECTIVE: Patient seen and examined in bed, resting comfortably. POD 1. He states there is some leg discomfort but no calf pain. He is no longer experiencing numbness/tingling in UE reported yesterday. He has been using the incentive spirometer. He has no yet passed gas or stool; having 1st meal today ( soft food). He is passing urine w/o concern. OBJECTIVE: Vital Signs Period Temp Pulse Resp BP Sys/Rubio Pulse Ox Last 24 Hr 97.4 F-98.4 F 67-112 14-37 111-173/45-106 9-100 GENERAL: AOx3, in no acute distress, cervical immobilization collar in place. HEAD: NCAT EYES: PERNELL, EOMI, conjunctiva clear. ENT: Ears normal, nares patent, oropharynx clear without exudates. Moist mucous membranes. NECK: Normal range of motion, supple without lymphadenopathy, JVD, or masses. LUNGS: CTAB. No wheezes, and no crackles. No accessory muscle use. HEART: RRR s1 s2 ABDOMEN: Soft, BS present in all 4 quadrants, non-distended, no JVD, MUSCULOSKELETAL: No bony deformities or tenderness. No CVA tenderness. UPPER EXTREMITIES: 2+ pulses, warm, well-perfused. No cyanosis. No clubbing. No peripheral edema. LOWER EXTREMITIES: 2+ pulses, warm, well-perfused. No calf tenderness. No peripheral edema. NEUROLOGICAL: No focal deficits. Cranial nerves II-XII intact. Normal speech. 5 /5 strength in all extremeties. Sensation intact throughout. PSYCHIATRIC: Cooperative. Good eye contact. Appropriate mood and affect. SKIN: Warm, dry, normal turgor, no rashes or lesions noted, normal capillary refill. Laboratory Results - last 24 hr 02/10/19 02/10/19 02/11/19 21:05 21:05 06:40 WBC 9.3 11.5 H RBC 5.13 4.94 Hgb 13.6 13.1 Hct 42.0 40.3 MCV 81.8 81.6 MCH 26.6 26.5 MCHC 32.5 32.4 RDW 13.7 13.4 Plt Count 175 169 MPV 8.7 9.0 Absolute Neuts (auto) 8.7 H 9.8 H Neutrophils % 94.2 H 84.8 H Neutrophils % (Manual) 90.0 H Band Neutrophils % 3.0 Lymphocytes % 5.0 L 10.0 D Lymphocytes % (Manual) 5.0 L Monocytes % 0.7 L 5.0 D Monocytes % (Manual) 0 L Eosinophils % 0.0 0.0 Eosinophils % (Manual) 0.0 Basophils % 0.1 0.2 Basophils % (Manual) 0.0 Nucleated RBC % 0 0 Platelet Estimate Adequate Sodium 143 Potassium 4.5 Chloride 109 H Carbon Dioxide 26 Anion Gap 8 BUN 12.1 Creatinine 1.8 H Est GFR (CKD-EPI)AfAm 48.72 Est GFR (CKD-EPI)NonAf 42.03 Random Glucose 130 H Calcium 9.0 Phosphorus 2.2 L Magnesium 1.7 L Total Bilirubin 0.4 AST 23 ALT 28 Alkaline Phosphatase 76 Total Protein 6.7 Albumin 3.5 02/11/19 06:40 WBC RBC Hgb Hct MCV MCH MCHC RDW Plt Count MPV Absolute Neuts (auto) Neutrophils % Neutrophils % (Manual) Band Neutrophils % Lymphocytes % Lymphocytes % (Manual) Monocytes % Monocytes % (Manual) Eosinophils % Eosinophils % (Manual) Basophils % Basophils % (Manual) Nucleated RBC % Platelet Estimate Sodium 142 Potassium 4.4 Chloride 106 Carbon Dioxide 29 Anion Gap 7 L BUN 16.0 Creatinine 1.6 H Est GFR (CKD-EPI)AfAm 56.17 Est GFR (CKD-EPI)NonAf 48.46 Random Glucose 113 H Calcium 9.1 Phosphorus 4.3 Magnesium 2.0 Total Bilirubin 1.0 AST 25 ALT 25 Alkaline Phosphatase 74 Total Protein 6.4 Albumin 3.3 L Active Medications Generic Name Dose Route Start Last Admin Trade Name Freq PRN Reason Stop Dose Admin Acetaminophen 1,000 mg 02/10/19 14:14 Ofirmev Injection - IVPB Q6H PRN FEVER Docusate Sodium 200 mg 02/10/19 20:05 Colace Liquid - PO Q24H PRN CONSTIPATION Lactated Ringer's 1,000 mls @ 75 mls/hr 02/10/19 23:41 02/11/19 01:46 Lactated Ringers Solution IV 75 mls/hr ASDIR MICHELLE Administration Ondansetron HCl 4 mg 02/10/19 14:08 Zofran Injection IVPUSH Q6H PRN NAUSEA AND/OR VOMITING Oxycodone HCl 5 mg 02/10/19 14:08 Roxicodone - PO Q4H PRN PAIN LEVEL 1-5 Oxycodone HCl 10 mg 02/10/19 14:08 Roxicodone - PO Q4H PRN PAIN LEVEL 6-10 ASSESSMENT/PLAN: 53 y/o male PMH HTN not on medication and cervical disc disease POD 1 POD #1 s/ p C5, C6 corpectomies. C4, C7 partial corpectomies. C4-C5, C5-C6, C6-C7 discectomies. C3-C7 insertion biomechanical device. C3-C7 anterior instrumentation. C4-C7 anterior arthrodesis. Bone autograft. Bone allograft. Microsurgical dissection. # Cervical disc disease s/p cervical corpectomies, discectomies, and cervical decompression/reconstruction - Pain control with acetominophen 1,000 mg IV q6h PRN and oxycodone 5 mg q4h PRN - Elevate head of bed 30 degrees - Incentive spirometer - Physical therapy evaluation - Senna/colace if no BM # HTN - Reassess once back to baseline - Prev. not on medications - F/u out-pt # F/E/N - PO - Cont. to monitor - Soft diet # DVT prophylaxis - SCD # Disposition - Anticipate dc depending on PT assessment Dave Frazier MD Visit type - Emergency Visit Emergency Visit: No - New Patient This patient is new to me today: Yes Date on this admission: 02/11/19 - Critical Care Critical Care patient: No ATTENDING PHYSICIAN STATEMENT I saw and evaluated the patient. I reviewed the resident's note and discussed the case with the resident. I agree with the resident's findings and plan as documented. SUBJECTIVE: OBJECTIVE: ASSESSMENT AND PLAN:
[2019-02-11] MEDS ORDERED: LACTATED RINGERS SOLUTION 1,000 ML IV SCH (16:28)
[2019-02-11] MEDS ORDERED: DOCUSATE NA 100 MG/10 ML UNIT-DOSE CUPS PO PRN (16:28)
[2019-02-11] MEDS ORDERED: oxyCODONE HCL 5 MG TABLET PO PRN ×2 (16:28)
[2019-02-11] MEDS ORDERED: ONDANSETRON 4 MG/2 ML VIAL IVPUSH PRN (16:28)
[2019-02-11] MEDS ORDERED: ACETAMINOPHEN 1000 MG/100 ML VIAL (NON FORMULARY) IVPB PRN (16:28)
--- NOTE | 2019-02-11 17:02 | PN ---
Teaching Attending Note Name of Resident: Dave Frazier ATTENDING PHYSICIAN STATEMENT I saw and evaluated the patient. I reviewed the resident's note and discussed the case with the resident. I agree with the resident's findings and plan as documented. SUBJECTIVE: has minimal pain in neck . no fever or chills. No weakness. numbness in upper and lower extremities has improved sore throat, no SOB OBJECTIVE: NAD, awake, alet, collar on . neck with anterior dressing. no stridor . VALENTÍN. MMM , oropharynx with erythema and bruising . no edema in uvula. Lungs : CTAB CV: RRR, no MRG Abd: soft, NT, ND , NL BS Ext : No edema No erythema NEuro : strength : RUE: 5/5 shoulder shrug, 5/5 biceps and triceps . LUE: 5/5 shoulder shrug, 5/5 biceps and triceps . RLE: 5/5 hip flexion . 5/5 knee extension/flexion . 5/5 ankle dorsiflexion, and 5/5 ankle plantar flexion LLE: 5/5 hip flexion . 5/5 knee extension/flexion . 5/5 ankle dorsiflexion, and 5/5 ankle plantar flexion . sensation : decreased to light touch on thighs and legs. nl on feet and on upper extremities and trunk reflexes : 2+ knee jerk b/l. 2+ biceps b/l ASSESSMENT AND PLAN: 3 y/o man with h/o cervical disc disease , and untreated HTN. who presented for his sx . medicine service was consulted for medical management 1- Cervical disc disease with meylopathy and radiculopathy. s/p cervical spine sx 2- H/o Untreated hypertension . 3- Elevated BP plan ; - pain management . cont oxycodone - Monitor BP - soft diet with thin liquids - SCds no heparin - baker dc'd - PT - bowel regimen - PT - leukocytosis. likely due the steroids given during procedure
[2019-02-11] MEDS: SENNOSIDES 8.6MG TABLET (FP) PO SCH (21:43)
[2019-02-12 08:32] LABS: HEMATOCRIT 41.4 % (35.4-49); HEMOGLOBIN 13.4 GM/dL (11.7-16.9); MCH 26.4 pg (25.7-33.7); MCHC 32.4 g/dl (32.0-35.9); MEAN CELL VOLUME 81.6 fl (80-96); MEAN PLT VOLUME 8.6 fl (7.5-11.1); PLATELET COUNT 155 K/MM3 (134-434); RBC 5.07 M/mm3 (4.00-5.60); RDW 13.6 % (11.9-15.9); WHITE BLOOD COUNT 8.8 K/mm3 (4.0-10.0)
[2019-02-12 08:54] LABS: ALBUMIN 3.5 g/dl (3.4-5.0); BILIRUBIN,TOTAL 0.8 mg/dL (0.2-1); CALCIUM 9.3 mg/dL (8.5-10.1); CREATININE 1.5 mg/dL (0.55-1.3); PHOSPHOROUS 3.2 mg/dL (2.5-4.9); POTASSIUM 4.2 mmol/L (3.5-5.1); TOT PROT 6.7 g/dl (6.4-8.2)
--- NOTE | 2019-02-12 09:08 | PN ---
Physical Exam: SUBJECTIVE: Patient seen and examined in bed, resting comfortably. POD 2. He has been using the incentive spirometer. He has passed gas but no stool. He is voiding w/o concern. OBJECTIVE: Vital Signs Period Temp Pulse Resp BP Sys/Rubio Pulse Ox Last 24 Hr 97.4 F-98.9 F 67-82 18-26 108-143/70-95 96 GENERAL: AOx3, in no acute distress, cervical immobilization collar in place. HEAD: NCAT EYES: PERNELL, EOMI, conjunctiva clear. ENT: Ears normal, nares patent, oropharynx clear without exudates. Moist mucous membranes. NECK: Normal range of motion, supple without lymphadenopathy, JVD, or masses. LUNGS: CTAB. No wheezes, and no crackles. No accessory muscle use. HEART: RRR s1 s2 ABDOMEN: Soft, BS present in all 4 quadrants, non-distended, no JVD, MUSCULOSKELETAL: UE FROM. No bony deformities. No CVA tenderness. UPPER EXTREMITIES: 2+ pulses, warm, well-perfused. No cyanosis. No clubbing. No peripheral edema. LOWER EXTREMITIES: 2+ pulses, warm, well-perfused. No calf tenderness. No peripheral edema. NEUROLOGICAL: No focal deficits. Cranial nerves II-XII intact. Normal speech. 5 /5 strength in all extremities. Sensation intact throughout. PSYCHIATRIC: Cooperative. Good eye contact. Appropriate mood and affect. SKIN: Warm, dry, normal turgor, no rashes or lesions noted, normal capillary refill. Laboratory Results - last 24 hr 02/12/19 02/12/19 08:00 08:00 WBC 8.8 RBC 5.07 Hgb 13.4 Hct 41.4 MCV 81.6 MCH 26.4 MCHC 32.4 RDW 13.6 Plt Count 155 MPV 8.6 Sodium 141 Potassium 4.2 Chloride 104 Carbon Dioxide 33 H Anion Gap 5 L BUN 19.0 H Creatinine 1.5 H Est GFR (CKD-EPI)AfAm 60.73 Est GFR (CKD-EPI)NonAf 52.40 Random Glucose 119 H Calcium 9.3 Phosphorus 3.2 Magnesium 2.0 Total Bilirubin 0.8 AST 94 H ALT 35 Alkaline Phosphatase 76 Total Protein 6.7 Albumin 3.5 Active Medications Acetaminophen (Ofirmev Injection -) 1,000 mg IVPB Q6H PRN PRN Reason: FEVER Benzocaine/Menthol (Cepacol Lozenge -) 1 each MM PRN PRN PRN Reason: SORE THROAT Last Admin: 02/12/19 20:16 Dose: 1 each Docusate Sodium (Colace Liquid -) 200 mg PO Q24H PRN PRN Reason: CONSTIPATION Ondansetron HCl (Zofran Injection) 4 mg IVPUSH Q6H PRN PRN Reason: NAUSEA AND/OR VOMITING Oxycodone HCl (Roxicodone -) 5 mg PO Q4H PRN PRN Reason: PAIN LEVEL 1-5 Last Admin: 02/11/19 19:09 Dose: 5 mg Oxycodone HCl (Roxicodone -) 10 mg PO Q4H PRN PRN Reason: PAIN LEVEL 6-10 Senna (Senna -) 1 tab PO BID MICHELLE Last Admin: 02/12/19 21:00 Dose: 1 tab ASSESSMENT/PLAN: 53 y/o male PMH HTN not on medication and cervical disc disease POD 2 s/p C5, C6 corpectomies. C4, C7 partial corpectomies. C4-C5, C5-C6, C6-C7 discectomies. C3-C7 insertion biomechanical device. C3-C7 anterior instrumentation. C4-C7 anterior arthrodesis. Bone autograft. Bone allograft. Microsurgical dissection. # Cervical disc disease s/p cervical corpectomies, discectomies, and cervical decompression/reconstruction - Pain control with acetominophen 1,000 mg IV q6h PRN and oxycodone 5 mg q4h PRN - Elevate head of bed 30 degrees - Incentive spirometer - Walked with physical therapy for 110 feet - Senna/colace - Speech/swallow eval: Trial soup, hot/cold cereals, ice cream, yogurt, possibly egg salad/tuna, Ensure Clear # HTN - Normotensive presently - Prev. not on medications - F/u out-pt with pcp # F/E/N - PO - Cont. to monitor - Soft diet # DVT prophylaxis - SCD # Disposition - Anticipate dc Dave Frazier MD Visit type - Emergency Visit Emergency Visit: No - New Patient This patient is new to me today: No - Critical Care Critical Care patient: No ATTENDING PHYSICIAN STATEMENT I saw and evaluated the patient. I reviewed the resident's note and discussed the case with the resident. I agree with the resident's findings and plan as documented. SUBJECTIVE: OBJECTIVE: ASSESSMENT AND PLAN:
--- NOTE | 2019-02-12 09:17 | PN ---
Progress Note (short form) - Note Progress Note: Pt is POD2 s/p anterior cervical corpectomy/laminectomy/cage placement. Pt's HEADER UP was d/c'ed earlier - pt doing well, pain is well tolerated.
[2019-02-12] MEDS: SENNOSIDES 8.6MG TABLET (FP) PO SCH ×2 (09:23→21:00)
--- NOTE | 2019-02-12 15:00 | PN ---
Progress Note, [employer] - Note Progress Note: Selected Entries 02/12/19 02/12/19 02/12/19 01:41 07:00 09:00 Breakfast 50% Diet Tolerated Fair Temperature 98.9 F 98.6 F 02/12/19 02/12/19 11:00 14:45 Breakfast Diet Tolerated Temperature 98.6 F 98.4 F Laboratory Tests 02/11/19 02/12/19 06:40 08:00 WBC 11.5 H 8.8 Pt grimacing with sips of water. Feels bread was getting stuck, needed to take tiny pieces. Mainly eating oatmeal and jello (sent with pineapple/grapes- Not ideal) Pt reported cough/expectorated a little green phlegm. Consider diet downgrade for safe PO tolerance until swelling improves and swallowing is more efficient. Trial soup, hot/cold cereals, ice cream, yogurt, possibly egg salad/tuna, Ensure Clear If continues to have difficulty, or coughs/clear throat with PO intake, may benefit from MBS. Monitor PO tolerance, pulmonary status.
--- NOTE | 2019-02-12 16:14 | PATH ---
Surgical Pathology Report Patient Name: RUSTAM CABALLERO Med. Rec. #: [id number] /Age/Gender: 1965 (Age: 53) / M Account: [id number] Location: [facility] MED/SURG Taken: 02/10/2019 Received: 02/11/2019 Reported: 02/12/2019 Physicians: Nigel Childers M.D. Specimen(s) Received C4-6 DISC Clinical History Cervical spinal stenosis Final Diagnosis C4-6 DISC, DISCECTOMY: FRAGMENTS OF CARTILAGINOUS TISSUE AND SCANTY BONE WITH FOCAL DEGENERATIVE CHANGE. Electronically Signed Juan David Del Rosario M.D. Gross Description Received in formalin labeled "C4-6 disc," is a 5.0 x 3.6 x 0.4 cm aggregate of bullock fragments of fibrocartilaginous tissue. A inbound call center representative portion is submitted in one cassette. DL/02/11/2019 saudi02/11/2019
[2019-02-12] MEDS: BENZOCAINE/MENTH/CETYLPYRD CL 1 EACH LOZENGE MM PRN ×2 (17:00→20:16)
--- NOTE | 2019-02-12 18:25 | PN ---
Teaching Attending Note Name of Resident: Dave Frazier ATTENDING PHYSICIAN STATEMENT I saw and evaluated the patient. I reviewed the resident's note and discussed the case with the resident. I agree with the resident's findings and plan as documented. SUBJECTIVE: Patient is comfortable with no acute distress, no nausea or vomiting, no new issues. Vital Signs Temperature 99.3 F 02/12/19 17:24 Pulse Rate 79 02/12/19 17:24 Respiratory Rate 20 02/12/19 17:24 Blood Pressure 138/88 02/12/19 17:24 O2 Sat by Pulse Oximetry (%) 96 02/11/19 21:00 GENERAL: The patient is awake, alert, and fully oriented, in no acute distress. HEAD: Normal with no signs of trauma. EYES: PERRL, extraocular movements intact, sclera anicteric, conjunctiva clear. ENT: Ears normal, oropharynx clear without exudates, moist mucous membranes. NECK: Trachea midline, supple, positive for collar with drainage LUNGS: Breath sounds equal, clear to auscultation bilaterally, no wheezes, no crackles, no accessory muscle use. HEART: Regular rate and rhythm, S1, S2 without murmur, rub or gallop. ABDOMEN: Soft, nontender, nondistended, normoactive bowel sounds, no guarding, no rebound, no hepatosplenomegaly, no masses. EXTREMITIES: 2+ pulses, warm, well-perfused, no edema. NEUROLOGICAL: Cranial nerves II through XII grossly intact. Normal speech, gait not observed. PSYCH: Normal mood, normal affect. SKIN: Warm, dry, normal turgor, no rashes or lesions noted CBCD WBC 8.8 K/mm3 (4.0-10.0) 02/12/19 08:00 RBC 5.07 M/mm3 (4.00-5.60) 02/12/19 08:00 Hgb 13.4 GM/dL (11.7-16.9) 02/12/19 08:00 Hct 41.4 % (35.4-49) 02/12/19 08:00 MCV 81.6 fl (80-96) 02/12/19 08:00 MCHC 32.4 g/dl (32.0-35.9) 02/12/19 08:00 RDW 13.6 % (11.9-15.9) 02/12/19 08:00 Plt Count 155 K/MM3 (134-434) 02/12/19 08:00 MPV 8.6 fl (7.5-11.1) 02/12/19 08:00 CMP Sodium 141 mmol/L (136-145) 02/12/19 08:00 Potassium 4.2 mmol/L (3.5-5.1) 02/12/19 08:00 Chloride 104 mmol/L (98-107) 02/12/19 08:00 Carbon Dioxide 33 mmol/L (21-32) H 02/12/19 08:00 Anion Gap 5 MMOL/L (8-16) L 02/12/19 08:00 BUN 19.0 mg/dL (7-18) H 02/12/19 08:00 Creatinine 1.5 mg/dL (0.55-1.3) H 02/12/19 08:00 Random Glucose 119 mg/dL (74-106) H 02/12/19 08:00 Calcium 9.3 mg/dL (8.5-10.1) 02/12/19 08:00 Total Bilirubin 0.8 mg/dL (0.2-1) 02/12/19 08:00 AST 94 U/L (15-37) H 02/12/19 08:00 ALT 35 U/L (13-61) 02/12/19 08:00 Alkaline Phosphatase 76 U/L (45-117) 02/12/19 08:00 Total Protein 6.7 g/dl (6.4-8.2) 02/12/19 08:00 Albumin 3.5 g/dl (3.4-5.0) 02/12/19 08:00 Current Medications Generic Name Dose Route Start Last Admin Trade Name Freq PRN Reason Stop Dose Admin Acetaminophen 1,000 mg 02/11/19 16:28 Ofirmev Injection - IVPB Q6H PRN FEVER Benzocaine/Menthol 1 each 02/12/19 15:34 Cepacol Lozenge - MM PRN PRN SORE THROAT Docusate Sodium 200 mg 02/11/19 16:28 Colace Liquid - PO Q24H PRN CONSTIPATION Ondansetron HCl 4 mg 02/11/19 16:28 Zofran Injection IVPUSH Q6H PRN NAUSEA AND/OR VOMITING Oxycodone HCl 5 mg 02/11/19 16:28 02/11/19 19:09 Roxicodone - PO 5 mg Q4H PRN Administration PAIN LEVEL 1-5 Oxycodone HCl 10 mg 02/11/19 16:28 Roxicodone - PO Q4H PRN PAIN LEVEL 6-10 Senna 1 tab 02/11/19 22:00 02/12/19 09:23 Senna - PO 1 tab BID MICHELLE Administration Home Medications Medication Instructions Recorded Ascorbic Acid [Vitamin C] 500 mg PO DAILY 02/10/19 Cholecalciferol (Vitamin D3) 400 unit PO DAILY 02/10/19 [Vitamin D3 -] Cyanocobalamin (Vitamin B-12) 5,000 mcg PO DAILY 02/10/19 [Vitamin B12] Mineral Cap 1 cap PO DAILY 02/10/19 Multivitamin [Multiple Vitamins] 1 each PO DAILY 02/10/19 Vitamin A 500 unit PO DAILY 02/10/19 Vitamin B Complex 1 each PO DAILY 02/10/19 Vitamin E 1,000 unit PO DAILY 02/10/19 Assessment and plan: 53 y/o man with h/o cervical disc disease , and untreated HTN. who presented for his sx . medicine service was consulted for medical management for dr Childers # POD#2 s/p cervical spine sx due to having cervical disc disease with meylopathy and radiculopathy. patient is wearing a collar. pain management . cont oxycodone ,diet as tolerated , # H/o Untreated hypertension . DVT Px: scds; no heparin , no nsaids PT , bowel regimen.
[2019-02-13] MEDS: BENZOCAINE/MENTH/CETYLPYRD CL 1 EACH LOZENGE MM PRN (06:13)
[2019-02-13 08:21] LABS: HEMATOCRIT 41.3 % (35.4-49); HEMOGLOBIN 13.6 GM/dL (11.7-16.9); MCH 26.7 pg (25.7-33.7); MCHC 32.9 g/dl (32.0-35.9); MEAN CELL VOLUME 81.3 fl (80-96); MEAN PLT VOLUME 8.3 fl (7.5-11.1); PLATELET COUNT 156 K/MM3 (134-434); RBC 5.08 M/mm3 (4.00-5.60); RDW 13.6 % (11.9-15.9)
[2019-02-13 08:41] LABS: BLOOD UREA NITROGEN 17.9 mg/dL (7-18); CALCIUM 8.9 mg/dL (8.5-10.1); CREATININE 1.4 mg/dL (0.55-1.3); MAGNESIUM 2.2 mg/dL (1.8-2.4); PHOSPHOROUS 3.3 mg/dL (2.5-4.9); POTASSIUM 3.8 mmol/L (3.5-5.1)
[2019-02-13] MEDS: SENNOSIDES 8.6MG TABLET (FP) PO SCH ×3 (09:24→21:32)
--- NOTE | 2019-02-13 15:16 | PN ---
Progress Note, [employer]TING [employer]ERKS - Note Progress Note: Selected Entries 02/13/19 02/13/19 02/13/19 06:25 09:00 09:24 Breakfast 75% Diet Tolerated Fair Lunch Temperature 98.3 F 98.1 F Blood Pressure 115/88 139/93 02/13/19 13:00 Breakfast Diet Tolerated Fair Lunch 75% Temperature Blood Pressure Laboratory Tests 02/12/19 02/13/19 08:00 07:40 WBC 8.8 6.0 Pt c/o Dysphagia. Pt is tolerating pureed consistencies better. He reports that he "almost choked on a piece of bread". He does not cough on thin liquids. He reports some congestion, bringing up phlegm. Afebrile. WBC WNL. Reviewed swallowing techniques. Pt said he hopes to go home soon. Suggest-Consider MBS to assess swallowing function Pureed diet, Blenderizing foods with liquid at home. Ensure Clear TID. Monitor PO tolerance.
--- NOTE | 2019-02-13 15:21 | PN ---
Physical Exam: SUBJECTIVE: Patient seen and examined in bed, resting comfortably. POD 3. He has been using the incentive spirometer well. He has passed gas and stool. He is voiding w/o concern. OBJECTIVE: Vital Signs Period Temp Pulse Resp BP Sys/Rubio Pulse Ox Last 24 Hr 98.1 F-99.3 F 76-90 18-20 115-141/88-93 96-97 GENERAL: AOx3, in no acute distress, cervical immobilization collar in place. HEAD: NCAT EYES: PERNELL, EOMI, conjunctiva clear. ENT: Ears normal, nares patent, oropharynx clear without exudates. Moist mucous membranes. NECK: Normal range of motion, supple without lymphadenopathy, JVD, or masses. LUNGS: CTAB. No wheezes, and no crackles. No accessory muscle use. HEART: RRR s1 s2 ABDOMEN: Soft, BS present in all 4 quadrants, non-distended, no JVD, MUSCULOSKELETAL: UE FROM. No bony deformities. No CVA tenderness. UPPER EXTREMITIES: 2+ pulses, warm, well-perfused. No cyanosis. No clubbing. No peripheral edema. LOWER EXTREMITIES: 2+ pulses, warm, well-perfused. No calf tenderness. No peripheral edema. NEUROLOGICAL: No focal deficits. Cranial nerves II-XII intact. Normal speech. 5 /5 strength in all extremities. Sensation intact throughout. PSYCHIATRIC: Cooperative. Good eye contact. Appropriate mood and affect. SKIN: Warm, dry, normal turgor, no rashes or lesions noted, normal capillary refill. Laboratory Results - last 24 hr 02/13/19 02/13/19 07:40 07:40 WBC 6.0 RBC 5.08 Hgb 13.6 Hct 41.3 MCV 81.3 MCH 26.7 MCHC 32.9 RDW 13.6 Plt Count 156 MPV 8.3 Sodium 140 Potassium 3.8 Chloride 104 Carbon Dioxide 31 Anion Gap 5 L BUN 17.9 Creatinine 1.4 H Est GFR (CKD-EPI)AfAm 66.01 Est GFR (CKD-EPI)NonAf 56.96 Random Glucose 109 H Calcium 8.9 Phosphorus 3.3 Magnesium 2.2 Active Medications Generic Name Dose Route Start Last Admin Trade Name Freq PRN Reason Stop Dose Admin Acetaminophen 1,000 mg 02/11/19 16:28 Ofirmev Injection - IVPB Q6H PRN FEVER Benzocaine/Menthol 1 each 02/12/19 15:34 02/13/19 06:13 Cepacol Lozenge - MM 1 each PRN PRN Administration SORE THROAT Docusate Sodium 200 mg 02/11/19 16:28 Colace Liquid - PO Q24H PRN CONSTIPATION Ondansetron HCl 4 mg 02/11/19 16:28 Zofran Injection IVPUSH Q6H PRN NAUSEA AND/OR VOMITING Oxycodone HCl 5 mg 02/11/19 16:28 02/11/19 19:09 Roxicodone - PO 5 mg Q4H PRN Administration PAIN LEVEL 1-5 Oxycodone HCl 10 mg 02/11/19 16:28 Roxicodone - PO Q4H PRN PAIN LEVEL 6-10 Senna 1 tab 02/11/19 22:00 02/13/19 09:24 Senna - PO Not Given BID MICHELLE ASSESSMENT/PLAN: 53 y/o male PMH HTN not on medication and cervical disc disease POD 3 s/p C5, C6 corpectomies. C4, C7 partial corpectomies. C4-C5, C5-C6, C6-C7 discectomies. C3-C7 insertion biomechanical device. C3-C7 anterior instrumentation. C4-C7 anterior arthrodesis. Bone autograft. Bone allograft. Microsurgical dissection. # Cervical disc disease s/p cervical corpectomies, discectomies, and cervical decompression/reconstruction - Pain control with acetominophen 1,000 mg IV q6h PRN and oxycodone 5 mg q4h PRN - Elevate head of bed 30 degrees - Incentive spirometer - Walked with physical therapy for 110 feet - Senna/colace - Speech/swallow eval: Trial soup, hot/cold cereals, ice cream, yogurt, possibly egg salad/tuna, Ensure Clear # HTN - Normotensive presently - Prev. not on medications - F/u out-pt with pcp # F/E/N - PO - WNL - Soft diet # DVT prophylaxis - SCD # Disposition - Anticipate dc - Clear for dc tomorow per surgery - F/u neck radiograph Dave Frazier MD Visit type - Emergency Visit Emergency Visit: No - New Patient This patient is new to me today: No - Critical Care Critical Care patient: No ATTENDING PHYSICIAN STATEMENT I saw and evaluated the patient. I reviewed the resident's note and discussed the case with the resident. I agree with the resident's findings and plan as documented. SUBJECTIVE: OBJECTIVE: ASSESSMENT AND PLAN:
--- NOTE | 2019-02-13 18:56 | PN ---
Teaching Attending Note Name of Resident: Dave Frazier ATTENDING PHYSICIAN STATEMENT I saw and evaluated the patient. I reviewed the resident's note and discussed the case with the resident. I agree with the resident's findings and plan as documented. SUBJECTIVE: Patient is feeling better ,would like to go home. Vital Signs Temperature 98.2 F 02/13/19 17:01 Pulse Rate 85 02/13/19 17:01 Respiratory Rate 20 02/13/19 17:01 Blood Pressure 135/74 02/13/19 17:01 O2 Sat by Pulse Oximetry (%) 97 02/13/19 09:00 GENERAL: The patient is awake, alert, and fully oriented, in no acute distress. HEAD: Normal with no signs of trauma. EYES: PERRL, extraocular movements intact, sclera anicteric, conjunctiva clear. . ENT: Ears normal, oropharynx clear without exudates, moist mucous membranes. NECK: Trachea midline, supple. positive for a neck collar, + for drainage LUNGS: Breath sounds equal, clear to auscultation bilaterally, no wheezes, no crackles, no accessory muscle use. HEART:decreased BS BL , S1, S2 without murmur, rub or gallop. ABDOMEN: Soft, NT,ND, normoactive bowel sounds, no guarding, no rebound, no hepatosplenomegaly, no masses. EXTREMITIES: 2+ pulses, warm, well-perfused, no edema. NEUROLOGICAL: Cranial nerves II through XII grossly intact. Normal speech, gait is stable . PSYCH: Normal mood, normal affect. SKIN: Warm, dry, normal turgor, no rashes or lesions noted CBCD WBC 6.0 K/mm3 (4.0-10.0) 02/13/19 07:40 RBC 5.08 M/mm3 (4.00-5.60) 02/13/19 07:40 Hgb 13.6 GM/dL (11.7-16.9) 02/13/19 07:40 Hct 41.3 % (35.4-49) 02/13/19 07:40 MCV 81.3 fl (80-96) 02/13/19 07:40 MCHC 32.9 g/dl (32.0-35.9) 02/13/19 07:40 RDW 13.6 % (11.9-15.9) 02/13/19 07:40 Plt Count 156 K/MM3 (134-434) 02/13/19 07:40 MPV 8.3 fl (7.5-11.1) 02/13/19 07:40 CMP Sodium 140 mmol/L (136-145) 02/13/19 07:40 Potassium 3.8 mmol/L (3.5-5.1) 02/13/19 07:40 Chloride 104 mmol/L (98-107) 02/13/19 07:40 Carbon Dioxide 31 mmol/L (21-32) 02/13/19 07:40 Anion Gap 5 MMOL/L (8-16) L 02/13/19 07:40 BUN 17.9 mg/dL (7-18) 02/13/19 07:40 Creatinine 1.4 mg/dL (0.55-1.3) H 02/13/19 07:40 Random Glucose 109 mg/dL (74-106) H 02/13/19 07:40 Calcium 8.9 mg/dL (8.5-10.1) 02/13/19 07:40 Total Bilirubin 0.8 mg/dL (0.2-1) 02/12/19 08:00 AST 94 U/L (15-37) H 02/12/19 08:00 ALT 35 U/L (13-61) 02/12/19 08:00 Alkaline Phosphatase 76 U/L (45-117) 02/12/19 08:00 Total Protein 6.7 g/dl (6.4-8.2) 02/12/19 08:00 Albumin 3.5 g/dl (3.4-5.0) 02/12/19 08:00 Current Medications Generic Name Dose Route Start Last Admin Trade Name Freq PRN Reason Stop Dose Admin Acetaminophen 1,000 mg 02/11/19 16:28 Ofirmev Injection - IVPB Q6H PRN FEVER Benzocaine/Menthol 1 each 02/12/19 15:34 02/13/19 06:13 Cepacol Lozenge - MM 1 each PRN PRN Administration SORE THROAT Docusate Sodium 200 mg 02/11/19 16:28 Colace Liquid - PO Q24H PRN CONSTIPATION Ondansetron HCl 4 mg 02/11/19 16:28 Zofran Injection IVPUSH Q6H PRN NAUSEA AND/OR VOMITING Oxycodone HCl 5 mg 02/11/19 16:28 02/11/19 19:09 Roxicodone - PO 5 mg Q4H PRN Administration PAIN LEVEL 1-5 Oxycodone HCl 10 mg 02/11/19 16:28 Roxicodone - PO Q4H PRN PAIN LEVEL 6-10 Senna 1 tab 02/11/19 22:00 02/13/19 09:24 Senna - PO Not Given BID MICHELLE Home Medications Medication Instructions Recorded Ascorbic Acid [Vitamin C] 500 mg PO DAILY 02/10/19 Cholecalciferol (Vitamin D3) 400 unit PO DAILY 02/10/19 [Vitamin D3 -] Cyanocobalamin (Vitamin B-12) 5,000 mcg PO DAILY 02/10/19 [Vitamin B12] Mineral Cap 1 cap PO DAILY 02/10/19 Multivitamin [Multiple Vitamins] 1 each PO DAILY 02/10/19 Vitamin A 500 unit PO DAILY 02/10/19 Vitamin B Complex 1 each PO DAILY 02/10/19 Vitamin E 1,000 unit PO DAILY 02/10/19 Assessment and plan: 53 y/o man with h/o cervical disc disease , and untreated HTN. who presented for his sx . medicine service was consulted for medical management for dr Richard # POD#3 s/p cervical spine sx due to having cervical disc disease with meylopathy and radiculopathy. patient is wearing a collar. diet as tolerated , dr richard will see the patient tonight . # H/o Untreated hypertension . DVT Px: scds; no heparin , no nsaids
--- NOTE | 2019-02-13 22:03 | PN ---
Progress Note (short form) - Note Progress Note: 53M s/p C5, C6 corpectomies with C4-C5, C5-C6, C6-C7 discectomies and C3-C7 anterior cervical decompression with anterior column reconstruction and instrumented fusion POD #3. Pain well controlled. No acute events overnight. Pt. denies overnight history of headaches, chest pain, shortness of breath, nausea, vomiting, chills, & sweats. (+) Voiding; (+) Flatus; (+) BM. (-) Dysphagia (tolerating normal diet); (-) Dysphonia. Walked independently in room and hallway today. All labs and vitals reviewed. PE: AAO x 3, NAD. C-Spine: Dressing, incision C/D/I. Drain with minimal output; removed now; [place] -J c-collar intact and in place. B/L UE & LE sensorimotor status improved from baseline. 53M s/p C5, C6 corpectomies with C4-C5, C5-C6, C6-C7 discectomies and C3-C7 anterior cervical decompression with anterior column reconstruction and instrumented fusion POD #3. -Pain medication: oral meds; NO NSAID's. -Maintain head of bed 30-45 degrees. -Hard c-collar. -DVT PPx: -Mechanical only: NAIMA's, SCD's. -f/u AM labs. -Incentive spirometry. -PT/OT/Rehab, OOB. -PWB B/L UE: 5lbs. -WBAT B/L LE. -Keep dressing clean & dry. -No heavy lifting (>5 lbs), bending or twisting x 6 months post op. -Soft diet; advance diet as tolerated. -B/L UE & LE NV checks. -Care per medical hospitalist team. -Discharge planning: f/u [facility] [place] office 02/21/2019; call for appointment; . Nigel Childers MD (Orthopaedic Surgery).
--- NOTE | 2019-02-13 22:07 | PN ---
Progress Note (short form) - Note Progress Note: 53M s/p C5, C6 corpectomies with C4-C5, C5-C6, C6-C7 discectomies and C3-C7 anterior cervical decompression with anterior column reconstruction and instrumented fusion POD #2. Pain well controlled. No acute events overnight. Pt. denies overnight history of headaches, chest pain, shortness of breath, nausea, vomiting, chills, & sweats. (+) Voiding; (+) Flatus; (+) BM. (-) Dysphagia (tolerating normal diet); (-) Dysphonia. Walked independently in room and hallway today. All labs and vitals reviewed. PE: AAO x 3, NAD. C-Spine: Dressing, incision C/D/I. Drain with minimal output; [place]-J c-collar intact and in place. B/L UE & LE sensorimotor status improved from baseline. 53M s/p C5, C6 corpectomies with C4-C5, C5-C6, C6-C7 discectomies and C3-C7 anterior cervical decompression with anterior column reconstruction and instrumented fusion POD #2. -Pain medication: oral meds; NO NSAID's. -Maintain head of bed 30-45 degrees. -Hard c-collar. -DVT PPx: -Mechanical only: NAIMA's, SCD's. -f/u AM labs. -Incentive spirometry. -PT/OT/Rehab, OOB. -PWB B/L UE: 5lbs. -WBAT B/L LE. -Keep dressing clean & dry. -No heavy lifting (>5 lbs), bending or twisting x 6 months post op. -Soft diet; advance diet as tolerated. -B/L UE & LE NV checks. -Care per medical hospitalist team. -Discharge planning: will d/c drain tomorrow; f/u [facility] [place] office 02/21/2019; call for appointment; . Nigel Childers MD (Orthopaedic Surgery).
[2019-02-14] MEDS: SENNOSIDES 8.6MG TABLET (FP) PO SCH (09:44)
[2019-02-14 12:17] VITALS: BP 129/86; PULSE 95; TEMP 98
--- NOTE | 2019-02-14 13:32 | PN ---
Progress Note, CALL OUT OPERATOR - Note Progress Note: Pending d/c today. Mashed potatoe too thick. Educated pt and Fiance to blenderize food with extra liquid. Monitor for stasis of food, congestion. MBS as out pt if dysphagia persists.
--- NOTE | 2019-02-14 14:34 | DS ---
Physical Exam: SUBJECTIVE: Patient seen and examined in bed, resting comfortably. POD 4. He has been using the incentive spirometer well. He has passed gas and stool. He is voiding w/o concern. OBJECTIVE: Vital Signs Period Temp Pulse Resp BP Sys/Rubio Pulse Ox Last 24 Hr 98.0 F-98.8 F 84-95 20-20 124-135/74-86 97-97 PHYSICAL EXAM GENERAL: AOx3, in no acute distress, cervical immobilization collar in place. HEAD: NCAT EYES: PERNELL, EOMI, conjunctiva clear. ENT: Ears normal, nares patent, oropharynx clear without exudates. Moist mucous membranes. NECK: Normal range of motion, supple without lymphadenopathy, JVD, or masses. LUNGS: CTAB. No wheezes, and no crackles. No accessory muscle use. HEART: RRR s1 s2 ABDOMEN: Soft, BS present in all 4 quadrants, non-distended, no JVD, MUSCULOSKELETAL: UE FROM. No bony deformities. No CVA tenderness. UPPER EXTREMITIES: 2+ pulses, warm, well-perfused. No cyanosis. No clubbing. No peripheral edema. LOWER EXTREMITIES: 2+ pulses, warm, well-perfused. No calf tenderness. No peripheral edema. NEUROLOGICAL: No focal deficits. Cranial nerves II-XII intact. Normal speech. 5 /5 strength in all extremities. Sensation intact throughout. PSYCHIATRIC: Cooperative. Good eye contact. Appropriate mood and affect. SKIN: Warm, dry, normal turgor, no rashes or lesions noted, normal capillary refill. LABS CBC, BMP 02/13/19 07:40 02/13/19 07:40 HOSPITAL COURSE: Date of Admission:02/10/19 53 y/o male PMH HTN not on medication and cervical disc disease POD 4 s/p C5, C6 corpectomies. C4, C7 partial corpectomies. C4-C5, C5-C6, C6-C7 discectomies. C3-C7 insertion biomechanical device. C3-C7 anterior instrumentation. C4-C7 anterior arthrodesis. Bone autograft. Bone allograft. Microsurgical dissection. Pain initially controlled with acetominophen 1,000 mg IV q6h PRN and oxycodone 5 mg q4h PRN but then jus Tylenol. He walked with physical therapy for 110 feet. Speech/swallow eval recommended soup, hot/cold cereals, ice cream, yogurt , possibly egg salad/tuna, Ensure Clear. 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 HTN monitored but he did no require medication; normotensive during stay. F/u out-pt with pcp for HTN management/care/prevention. Final cervical spine radiograph demonstrated: anterior fusion hardware from C4 through T1. There appears to be a partially compressed C5. There is fullness of the prevertebral soft tissues. Neck brace is in place. Pt was dc to home. Date of Discharge: 02/14/19 Dave Frazier MD Discharge Summary Reason For Visit: SPINAL STENOSIS CERVICAL REGION Condition: Improved - Instructions Diet, Activity, Other Instructions: YOUR VISIT You came to the hospital for pain. You were admitted to the hospital for neck surgery. While here you were seen by physical therapists and speech pathology specialists. You may now return home with the care instructions below. MEDICATIONS Please continue to take your home medications as prescribed. ADDITIONAL CARE Please make an appointment to see your primary care provider, 1 week from today. - Pain medication: Tylenol; NO NSAIDs. - Continue to use hard c-collar. - Continue to use incentive spirometer - You may lift no more than 5 lbs with your arms. No heavy lifting (>5 lbs), bending or twisting x 6 months post op. - Keep your surgical dressing clean & dry. - Soft diet; advance diet as tolerated. - Please ensure you attend your next appointment with [facility] [place] office 02/21/2019; call for appointment; . ADDITIONAL INFORMATION Please call 911 or come directly to the emergency department if you experience unusual headache, vision change, shortness of breath, chest pain, numbness, tingling, loss of alertness/awareness, loss of function, unusual bleeding or any alarming symptoms. Referrals: Nigel Childers MD [Staff Physician] - Disposition: HOME - Home Medications Comprehensive Discharge Medication List: Ambulatory Orders Ascorbic Acid [Vitamin C] 500 mg PO DAILY 02/10/19 Cholecalciferol (Vitamin D3) [Vitamin D3 -] 400 unit PO DAILY 02/10/19 Cyanocobalamin (Vitamin B-12) [Vitamin B12] 5,000 mcg PO DAILY 02/10/19 Mineral Cap 1 cap PO DAILY 02/10/19 Multivitamin [Multiple Vitamins] 1 each PO DAILY 02/10/19 Vitamin A 500 unit PO DAILY 02/10/19 Vitamin B Complex 1 each PO DAILY 02/10/19 Vitamin E 1,000 unit PO DAILY 02/10/19 ATTENDING PHYSICIAN STATEMENT I saw and evaluated the patient. I reviewed the resident's note and discussed the case with the resident. I agree with the resident's findings and plan as documented. SUBJECTIVE: OBJECTIVE: ASSESSMENT AND PLAN:
--- NOTE | 2019-02-14 16:09 | PN ---
Teaching Attending Note Name of Resident: Dave Frazier ATTENDING PHYSICIAN STATEMENT I saw and evaluated the patient. I reviewed the resident's note and discussed the case with the resident. I agree with the resident's findings and plan as documented. SUBJECTIVE: Patient is feeling better with no acute distress. Patient is comfortable with no acute distress. Patient's is at bedside. Vital Signs Temperature 98.0 F 02/14/19 10:00 Pulse Rate 95 H 02/14/19 10:00 Respiratory Rate 20 02/14/19 10:00 Blood Pressure 129/86 02/14/19 10:00 O2 Sat by Pulse Oximetry (%) 97 02/14/19 09:00 GENERAL: The patient is awake, alert, and fully oriented, in no acute distress. HEAD: Normal with no signs of trauma. EYES: PERRL, extraocular movements intact, sclera anicteric, conjunctiva clear. No ptosis. ENT: Ears normal, nares patent, oropharynx clear without exudates, moist mucous membranes. NECK: Trachea midline, full range of motion, supple. + collar , drainage is removed. LUNGS: Breath sounds equal, clear to auscultation bilaterally, no wheezes, no crackles, no accessory muscle use. HEART: Regular rate and rhythm, S1, S2 without murmur, rub or gallop. ABDOMEN: Soft, nontender, nondistended, normoactive bowel sounds, no guarding, no rebound, no hepatosplenomegaly, no masses. EXTREMITIES: 2+ pulses, warm, well-perfused, no edema. NEUROLOGICAL: Cranial nerves II through XII grossly intact. Normal speech, gait not observed. PSYCH: Normal mood, normal affect. SKIN: Warm, dry, normal turgor, no rashes or lesions noted CBCD WBC 6.0 K/mm3 (4.0-10.0) 02/13/19 07:40 RBC 5.08 M/mm3 (4.00-5.60) 02/13/19 07:40 Hgb 13.6 GM/dL (11.7-16.9) 02/13/19 07:40 Hct 41.3 % (35.4-49) 02/13/19 07:40 MCV 81.3 fl (80-96) 02/13/19 07:40 MCHC 32.9 g/dl (32.0-35.9) 02/13/19 07:40 RDW 13.6 % (11.9-15.9) 02/13/19 07:40 Plt Count 156 K/MM3 (134-434) 02/13/19 07:40 MPV 8.3 fl (7.5-11.1) 02/13/19 07:40 CMP Sodium 140 mmol/L (136-145) 02/13/19 07:40 Potassium 3.8 mmol/L (3.5-5.1) 02/13/19 07:40 Chloride 104 mmol/L (98-107) 02/13/19 07:40 Carbon Dioxide 31 mmol/L (21-32) 02/13/19 07:40 Anion Gap 5 MMOL/L (8-16) L 02/13/19 07:40 BUN 17.9 mg/dL (7-18) 02/13/19 07:40 Creatinine 1.4 mg/dL (0.55-1.3) H 02/13/19 07:40 Random Glucose 109 mg/dL (74-106) H 02/13/19 07:40 Calcium 8.9 mg/dL (8.5-10.1) 02/13/19 07:40 Total Bilirubin 0.8 mg/dL (0.2-1) 02/12/19 08:00 AST 94 U/L (15-37) H 02/12/19 08:00 ALT 35 U/L (13-61) 02/12/19 08:00 Alkaline Phosphatase 76 U/L (45-117) 02/12/19 08:00 Total Protein 6.7 g/dl (6.4-8.2) 02/12/19 08:00 Albumin 3.5 g/dl (3.4-5.0) 02/12/19 08:00 Home Medications Medication Instructions Recorded Ascorbic Acid [Vitamin C] 500 mg PO DAILY 02/10/19 Cholecalciferol (Vitamin D3) 400 unit PO DAILY 02/10/19 [Vitamin D3 -] Cyanocobalamin (Vitamin B-12) 5,000 mcg PO DAILY 02/10/19 [Vitamin B12] Mineral Cap 1 cap PO DAILY 02/10/19 Multivitamin [Multiple Vitamins] 1 each PO DAILY 02/10/19 Vitamin A 500 unit PO DAILY 12/16/19 Vitamin B Complex 1 each PO DAILY 02/10/19 Vitamin E 1,000 unit PO DAILY 02/10/19 Assessment and plan: 53 y/o man with h/o cervical disc disease , and untreated HTN. who presented for his sx . medicine service was consulted for medical management for dr Richard # POD#4 s/p cervical spine sx due to having cervical disc disease with meylopathy and radiculopathy. patient is wearing a collar. diet as tolerated , dr richard wants the patient discharged and follow up with him by next . Complete instructions were given to the patient as per patient , that he needs to follow up with him by next , and call him if any issues. # H/o Untreated hypertension . Pain medication: Tylenol; NO NSAIDs. - Continue to use hard c-collar. - Continue to use incentive spirometer - You may lift no more than 5 lbs with your arms. No heavy lifting (>5 lbs), bending or twisting x 6 months post op. - Keep your surgical dressing clean & dry. - Soft diet; advance diet as tolerated. - Please ensure you attend your next appointment with [facility] [place] office 02/21/2019; call for appointment; .
--- NOTE | 2019-02-14 16:12 | DS ---
Physical Exam: SUBJECTIVE: Patient seen and examined OBJECTIVE: Vital Signs Period Temp Pulse Resp BP Sys/Rubio Pulse Ox Last 24 Hr 98.0 F-98.8 F 84-95 20-20 124-135/74-86 97-97 PHYSICAL EXAM GENERAL: The patient is awake, alert, and fully oriented, in no acute distress. HEAD: Normal with no signs of trauma. EYES: PERRL, extraocular movements intact, sclera anicteric, conjunctiva clear. ENT: Ears normal, nares patent, oropharynx clear without exudates, moist mucous membranes. NECK: Trachea midline, full range of motion, supple. LUNGS: Breath sounds equal, clear to auscultation bilaterally, no wheezes, no crackles, no accessory muscle use. HEART: Regular rate and rhythm, S1, S2 without murmur, rub or gallop. ABDOMEN: Soft, nontender, nondistended, normoactive bowel sounds, no guarding, no rebound, no hepatosplenomegaly, no masses. EXTREMITIES: 2+ pulses, warm, well-perfused, no edema. NEUROLOGICAL: Cranial nerves II through XII grossly intact. Normal speech, gait not observed. PSYCH: Normal mood, normal affect. SKIN: Warm, dry, normal turgor, no rashes or lesions noted. LABS HOSPITAL COURSE: Date of Admission:02/10/19 Date of Discharge: 02/14/19 Discharge Summary Reason For Visit: SPINAL STENOSIS CERVICAL REGION Condition: Improved - Instructions Diet, Activity, Other Instructions: YOUR VISIT You came to the hospital for pain. You were admitted to the hospital for neck surgery. While here you were seen by physical therapists and speech pathology specialists. You may now return home with the care instructions below. MEDICATIONS Please continue to take your home medications as prescribed. ADDITIONAL CARE Please make an appointment to see your primary care provider, 1 week from today. - Pain medication: Tylenol; NO NSAIDs. - Continue to use hard c-collar. - Continue to use incentive spirometer - You may lift no more than 5 lbs with your arms. No heavy lifting (>5 lbs), bending or twisting x 6 months post op. - Keep your surgical dressing clean & dry. - Soft diet; advance diet as tolerated. - Please ensure you attend your next appointment with [facility] office 02/21/2019; call for appointment; . ADDITIONAL INFORMATION Please call 911 or come directly to the emergency department if you experience unusual headache, vision change, shortness of breath, chest pain, numbness, tingling, loss of alertness/awareness, loss of function, unusual bleeding or any alarming symptoms. Referrals: Nigel Childers MD [Staff Physician] - Disposition: HOME - Home Medications Comprehensive Discharge Medication List: Ambulatory Orders Ascorbic Acid [Vitamin C] 500 mg PO DAILY 02/10/19 Cholecalciferol (Vitamin D3) [Vitamin D3 -] 400 unit PO DAILY 02/10/19 Cyanocobalamin (Vitamin B-12) [Vitamin B12] 5,000 mcg PO DAILY 02/10/19 Mineral Cap 1 cap PO DAILY 02/10/19 Multivitamin [Multiple Vitamins] 1 each PO DAILY 02/10/19 Vitamin A 500 unit PO DAILY 02/10/19 Vitamin B Complex 1 each PO DAILY 02/10/19 Vitamin E 1,000 unit PO DAILY 02/10/19 ATTENDING PHYSICIAN STATEMENT I saw and evaluated the patient. I reviewed the resident's note and discussed the case with the resident. I agree with the resident's findings and plan as documented. SUBJECTIVE: OBJECTIVE: ASSESSMENT AND PLAN:
== END 2019-02-14 15:29 | disposition home or self-care (01) | DRG 472 ==
LOC: JSAMEDAYSX 06:21 → JICU 17:28 → J8W 02-11 15:50
PROVIDERS: ADMIT Orthopaedic Surgery Orthopaedic Surgery of the Spine; ATTEND Orthopaedic Surgery Orthopaedic Surgery of the Spine
PROC: 0RB30ZZ Excision of Cervical Vertebral Disc, Open Approach (ICD-10-PCS; 2019-02-10)
PROC: 00NW0ZZ Release Cervical Spinal Cord, Open Approach (ICD-10-PCS; 2019-02-10)
PROC: B01BZZZ Fluoroscopy of Spinal Cord (ICD-10-PCS; 2019-02-10)
PROC: 0RG20A0 Fusion of 2 or more Cervical Vertebral Joints with Interbody Fusion Device, Anterior Approach, Anterior Column, Open Approach (ICD-10-PCS; principal; 2019-02-10 08:00)
DX: M50.021 Cervical disc disorder at C4-C5 level with myelopathy (principal); M47.12 Other spondylosis with myelopathy, cervical region; M50.121 Cervical disc disorder at C4-C5 level with radiculopathy; M48.02 Spinal stenosis, cervical region; M40.202 Unspecified kyphosis, cervical region; M43.8X2 Other specified deforming dorsopathies, cervical region; R26.9 Unspecified abnormalities of gait and mobility; K59.09 Other constipation; I10 Essential (primary) hypertension
CPT/HCPCS: 36415; 72050-TC-FY; 76000-TC-FY; 80048; 80053; 83735; 84100; 85025; 85027; 86850; 86891; 86900; 86901; 88304-TC; 94760; 97116-GP; 97162-GP; J0131; J1644